=== PATIENT | female | born 1970 | race Caucasian/White ===

== ENCOUNTER 2017-02-23 15:39 | Inpatient (IN) ==
[2017-02-23] MEDS ORDERED: 0.9 % Sodium Chloride 1,000 ML IVC ONE (15:49)
[2017-02-23 16:13] LABS: Basophils # 0.1 K/mcL (0.0-0.2); Basophils % 0.4 %; Eosinophils % 0.1 %; Hemoglobin 17.4 g/dL (11.5-15.4); Immature Granulocytes % 0.3 % (0-4); Lymphocytes # 1.9 K/mcL (0.6-4.6); Lymphocytes % 9.7 %; Mean Corpuscular HGB Conc 35.5 g/dL (31.6-35.5); Mean Corpuscular Hemoglobin 31.8 pg (28.0-33.3); Mean Corpuscular Volume 89.6 fL (83.0-100.0); Mean Platelet Volume 9.2 fL (9.4-12.4); Monocytes % 5.1 %; Neutrophils # 16.9 K/mcL (1.6-8.9); Platelet Count 259 K/mcL (140-400); Red Blood Count 5.47 M/mcL (3.82-4.97); Red Cell Distribution Width 12.6 % (11.5-14.5); Segmented Neutrophils % 84.4 %
--- NOTE | 2017-02-23 16:23 | Emergency Department Note ---
Disposition Clinical Impression: Community acquired pneumonia Leukocytosis Qualifiers: Leukocytosis type: unspecified Qualified Code(s): D72.829 - Elevated white blood cell count, unspecified Disposition: Admitted As Inpatient Condition: Fair Time of Disposition: 17:11 SOB HPI - General Chief Complaint: ED Shortness of Breath/Dyspnea Stated Complaint: MARGARET dizzy Time Seen by Provider: 02/23/17 15:46 Source: patient Mode of arrival: ambulatory Limitations: no limitations Nursing Notes Reviewed: Yes Vital Signs Reviewed: Yes - History of Present Illness Patient presents to the ED with the chief complaint of shortness of breath. Patient reports that over the last couple weeks she has been having dyspnea. She reports that it feels very much like a burning whenever she breathes in, "like a drink bleach." She denies any ingestions. She does not know. She said any fevers, but has been sweaty at times. This will nauseated at times. Denies any chest discomfort but states it feels like her lungs hurt. Family reports that she is a poorly controlled diabetic and generally does not take care of herself. She does continue to smoke. Patient states that she has been trying to meditate to help with her symptoms, but it has not been helping. No previous history of coronary artery disease. No history DVT or PE. - Related Data Home Medications Medication Instructions Recorded Confirmed No Known Home Drugs 02/23/17 02/23/17 Allergies Allergy/AdvReac Type Severity Reaction Status Date / Time No Known Allergies Allergy Verified 02/23/17 15:45 Constitutional: Denies: fever Eyes: Denies: vision change Cardiovascular: Reports: palpitations, dyspnea on exertion. Denies: chest pain Respiratory: Reports: cough, dyspnea. Denies: wheezes Gastrointestinal: Reports: nausea. Denies: abdominal pain Integumentary: Denies: rash Neurological: Denies: headache Psychiatric: Reports: anxiety Endocrine: Reports: fatigue Past Medical History - Past Medical History Attestation: Yes The following information was validated with the patient. Source: patient Medical history: Reports: diabetes Psychiatric history: Reports: no psych history - Social History Smoking Status: Current some day smoker Alcohol use: Reports: none Drug use: Reports: none Physical Exam - General Limitations: no limitations General appearance: alert, anxious - Head Head exam: atraumatic, normocephalic, normal inspection - Eye Eye exam: Present: normal appearance, PERRL, EOMI - ENT ENT exam: normal exam, normal oropharynx, mucous membranes moist - Neck Neck exam: Present: normal inspection, full ROM, trachea midline - Chest Chest inspection: Present: normal inspection, symmetric chest wall rise - Respiratory Respiratory exam: Present: respiratory distress (mild tachypnic ), other ( Course breath sounds throughout). Absent: normal lung sounds bilaterally - Cardiovascular Cardiovascular exam: Present: tachycardia, normal heart sounds - Abdominal Exam Abdominal exam: Present: soft, Non-Tender. Absent: tenderness, distention, guarding, rebound, rigidity - Extremities Exam Extremities exam: Present: normal inspection, full ROM. Absent: tenderness, pedal edema - Neurological Exam Neurological exam: Present: alert, oriented X3 - Psychiatric Psychiatric exam: Present: anxious - Skin Skin exam: Present: warm, dry, intact, normal color Course Course Narrative: 46 to female presenting with shortness of breath for a few weeks. Clinically, she has pneumonia. We will get chest x-ray. Labs start antibiotics and admitted. Vital Signs Temperature 99.2 F 02/23/17 15:44 Pulse Rate 112 02/23/17 15:44 Respiratory Rate 24 02/23/17 15:44 Blood Pressure 174/107 02/23/17 15:44 O2 Sat by Pulse Oximetry 94 02/23/17 15:44 Temperature 98.0 F 02/23/17 22:39 Pulse Rate 99 02/23/17 22:39 Respiratory Rate 19 02/23/17 22:58 Blood Pressure 144/82 02/23/17 22:39 O2 Sat by Pulse Oximetry 93 02/23/17 22:58 Oxygen Delivery Oxygen Delivery Aerosol Mask Shortness of Breath/Dyspnea - Medical Records Medical records reviewed: Yes I reviewed the patient's medical records. - Lab Data Lab results reviewed: Yes I reviewed the patient's lab results. Result diagrams: 02/23/17 16:02 02/23/17 16:02 Lab Results 02/23/17 02/23/17 02/23/17 Range/Units 16:02 16:02 16:02 WBC 20.0 H (4.3-11.1) K/mcL RBC 5.47 H (3.82-4.97) M/mcL Hgb 17.4 H (11.5-15.4) g/dL Hct 49.0 H (35.3-44.9) % MCV 89.6 (83.0-100.0) fL MCH 31.8 (28.0-33.3) pg MCHC 35.5 (31.6-35.5) g/dL RDW 12.6 (11.5-14.5) % Plt Count 259 (140-400) K/mcL MPV 9.2 L (9.4-12.4) fL Immature Gran % 0.3 (0-4) % Seg Neutrophils % 84.4 % Lymphocytes % 9.7 % Monocytes % 5.1 % Eosinophils % 0.1 % Basophils % 0.4 % Neutrophils # 16.9 H (1.6-8.9) K/mcL Lymphocytes # 1.9 (0.6-4.6) K/mcL Monocytes # 1.0 (0.0-1.3) K/mcL Eosinophils # 0.0 (0.0-0.6) K/mcL Basophils # 0.1 (0.0-0.2) K/mcL D-Dimer 313 (0-500) ng/mLFEU Sodium 136 (136-145) mEq/L Potassium 4.2 (3.5-4.5) mEq/L Chloride 103 (98-109) mEq/L Carbon Dioxide 22 (19-29) mEq/L BUN 11 (7-20) mg/dL Creatinine 0.79 (0.57-1.11) mg/dL Est GFR ( Amer) > 60 (> 60) Est GFR (Non-Af Amer) > 60 (> 60) BUN/Creatinine Ratio 14 (6-26) Glucose 189 H (70-99) mg/dL Calculated Osmolality 286 (280-300) Lactic Acid (0.5-2.2) mmol/L Calcium 10.1 (8.6-10.8) mg/dL Total Bilirubin 0.8 (0.2-1.2) mg/dL Direct Bilirubin 0.2 (0.0-0.5) mg/dL Indirect Bilirubin 0.6 (0.0-1.2) mg/dL AST 17 (5-34) Units/L ALT 18 (0-55) Units/L Alkaline Phosphatase 98 (38-126) Units/L Creatine Kinase 68 (29-168) Units/L Troponin I (0-0.03) ng/mL B-Natriuretic Peptide (0-100) pg/mL Serum Total Protein 8.2 (6.0-8.3) g/dL Albumin 4.1 (3.5-5.0) g/dL Globulin 4.1 H (2.4-3.5) g/dL Albumin/Globulin Ratio 1.0 L (1.1-2.2) 02/23/17 02/23/17 02/23/17 Range/Units 16:02 16:02 16:18 WBC (4.3-11.1) K/mcL RBC (3.82-4.97) M/mcL Hgb (11.5-15.4) g/dL Hct (35.3-44.9) % MCV (83.0-100.0) fL MCH (28.0-33.3) pg MCHC (31.6-35.5) g/dL RDW (11.5-14.5) % Plt Count (140-400) K/mcL MPV (9.4-12.4) fL Immature Gran % (0-4) % Seg Neutrophils % % Lymphocytes % % Monocytes % % Eosinophils % % Basophils % % Neutrophils # (1.6-8.9) K/mcL Lymphocytes # (0.6-4.6) K/mcL Monocytes # (0.0-1.3) K/mcL Eosinophils # (0.0-0.6) K/mcL Basophils # (0.0-0.2) K/mcL D-Dimer (0-500) ng/mLFEU Sodium (136-145) mEq/L Potassium (3.5-4.5) mEq/L Chloride (98-109) mEq/L Carbon Dioxide (19-29) mEq/L BUN (7-20) mg/dL Creatinine (0.57-1.11) mg/dL Est GFR ( Amer) (> 60) Est GFR (Non-Af Amer) (> 60) BUN/Creatinine Ratio (6-26) Glucose (70-99) mg/dL Calculated Osmolality (280-300) Lactic Acid 1.3 (0.5-2.2) mmol/L Calcium (8.6-10.8) mg/dL Total Bilirubin (0.2-1.2) mg/dL Direct Bilirubin (0.0-0.5) mg/dL Indirect Bilirubin (0.0-1.2) mg/dL AST (5-34) Units/L ALT (0-55) Units/L Alkaline Phosphatase (38-126) Units/L Creatine Kinase (29-168) Units/L Troponin I 0.00 (0-0.03) ng/mL B-Natriuretic Peptide 15 (0-100) pg/mL Serum Total Protein (6.0-8.3) g/dL Albumin (3.5-5.0) g/dL Globulin (2.4-3.5) g/dL Albumin/Globulin Ratio (1.1-2.2) - Radiology Data Radiology results reviewed: Yes I reviewed the patient's radiology results. - EKG Data EKG attestation: Yes I reviewed and interpreted this EKG. EKG results narrative: Sinus tach, rate 106, ME interval 174, QRS 11, QTc 383, normal axis, minimal ST segment depression, but no acute ischemic changes Critical Care Time Total Critical Care Time: 35 Attestation: Greater than 35 minutes of critical care time was spent actively resuscitating this patient suffering from sepsis. She did have hypoxia. Critical care time was excluding billable procedures S.B.AMahamed - Linda Situation: Demographics, MOA Background: Presenting Complaint, Relevant PMH, Meds, & Allergies Assessment: Vital Signs, Course and respsone to treatment, Exam Concerns, Patient/Family Expectation, Pertinant Lab Results, Outstanding Labs Recommendation: Barrier(s) to disposition, Recommendation based on pending studies, treatments, or consults S.B.Trent Report Given to: Dr. Layla Mckeon Repor Time: 17:11 Attestation Statement - Attestation Attestation: I examined this patient and my medical decision-making was reviewed with the Resident Physician. I agree with the documented findings, disposition and treatment plan as described except to the extent set forth below. In summary 46 -year-old female with symptoms of acute bronchitis with concurrent symptoms of systemic inflammatory response syndrome. Antibiotics initiated on arrival. Fluid bolus initiated. Patient received bronchodilators. D-dimer was checked and was negative. Plan to admit for evaluation of possible sepsis in the setting of underlying bronchitis. Hypoxia resolved at the time of admission.
[2017-02-23 16:29] LABS: Alanine Aminotransferase 18 Units/L (0-55); Albumin 4.1 g/dL (3.5-5.0); Alkaline Phosphatase 98 Units/L (38-126); Aspartate Amino Transferase 17 Units/L (5-34); BUN/Creatinine Ratio 14 (6-26); Bilirubin,Direct 0.2 mg/dL (0.0-0.5); Bilirubin,Indirect 0.6 mg/dL (0.0-1.2); Bilirubin,Total 0.8 mg/dL (0.2-1.2); Blood Urea Nitrogen 11 mg/dL (7-20); Calcium 10.1 mg/dL (8.6-10.8); Carbon Dioxide 22 mEq/L (19-29); Chloride 103 mEq/L (98-109); Creatine Kinase 68 Units/L (29-168); Globulin 4.1 g/dL (2.4-3.5); Glucose 189 mg/dL (70-99); Osmolality,Calculated 286 (280-300); Potassium 4.2 mEq/L (3.5-4.5); Sodium 136 mEq/L (136-145); Total Protein 8.2 g/dL (6.0-8.3); eGFR For African Americans > 60 (> 60); eGFR For Non-African Americans > 60 (> 60)
[2017-02-23] MEDS ORDERED: Ipratropium/Albuterol Neb 3 ML IH ONE (17:09)
--- NOTE | 2017-02-23 17:28 | Event Note ---
Date of Encounter: 02/23/17 Time of Encounter: 17:25 1. Acute COPD exacerbation likely secondary to sepsis due to acute bronchitis bacterial versus viral Heart rate 114 White blood cell count 20 *Solu-Medrol 40 mg IV every 8 hours, start Rocephin, continue DuoNeb's and oxygen therapy 2. Diabetes type 2 not insulin-dependent. Use insulin sliding scale while being in the hospital 3. Tobacco use, smoking cessation counseling, nicotine patch 4. Leukocytosis secondary to sepsis Omeprazole for GI prophylaxis and subcutaneous heparin for deep prophylaxis. The patient will be admitted for observation. Full code. Time spent on this admission 40 minutes. H&P to be dictated by Nerissa Jaeger
[2017-02-23] MEDS ORDERED: Ondansetron ODT 4 MG TAB.RAPDIS SL PRN (17:50)
[2017-02-23] MEDS ORDERED: Naloxone 0.4 MG/ML INJ IVP PRN (17:50)
[2017-02-23] MEDS ORDERED: Acetaminophen 325 MG TABLET PO PRN (17:50)
[2017-02-23] MEDS ORDERED: methylPREDNISolone 125 MG/2 ML VIAL IVP ONE (17:55)
[2017-02-23] MEDS ORDERED: Albuterol 2.5 MG/3 ML NEBULIZER IH PRN (17:55)
[2017-02-23] MEDS ORDERED: Dextrose Gel 15 GM PO PRN ×2 (17:57)
[2017-02-23] MEDS ORDERED: *HR* Dextrose 50 % in Water (Syg) 50 ML SYRINGE IVP PRN (17:57)
[2017-02-23] MEDS ORDERED: Nicotine 2 MG GUM BC PRN (17:57)
[2017-02-23] MEDS ORDERED: D5% in Water 1,000 ML IVC PRN (17:57)
--- NOTE | 2017-02-23 18:02 | Internal Med History&Physical ---
<Nerissa Jaeger M - Last Filed: 02/23/17 17:58> Date of Encounter: 02/23/17 Time of Encounter: 17:58 Assessment and Plan (1) Sepsis Current visit: Yes Status: Acute Patient with bronchitis, tachycardia with HR 110s, tachypnea with RR 24 and elevated WBC of 20. Blood cultures ordered and sent Lactate normal at 1.3 Fluids of 3L total ordered by ED. Antibiotics started with Rocephin for acute bronchitis. Qualifiers: Sepsis type: sepsis due to unspecified organism Qualified Code(s): A41.9 - Sepsis, unspecified organism (2) Acute bronchitis Current visit: Yes Status: Acute Patient reports productive cough, shortness of breath, chills and sweats. CXR shows no acute process. Wheezes and rhonchi heard on exam. Rocephin IVPB Solu medrol 125mg IVP followed by 60mg IVP TID. duoneb treatments QIDR albuterol Q2 PRN mucinex BID budesonide/formotorol BID titrate oxygen to maintain saturation > 92%. Qualifiers: Bronchitis organism: unspecified organism Qualified Code(s): J20.9 - Acute bronchitis, unspecified (3) Hypoxia Current visit: Yes Status: Acute Patient presenting with shortness of breath, tachypnea. She is satting 80s-low 90s on room air. Secondary to acute bronchitis. titrate O2 to maintain saturation > 92%. duoneb treatments and albuterol nebulizers, steroids and antibiotics to treat bronchitis. (4) Smoker Current visit: Yes Status: Acute Discussed and encouraged smoking cessation. Patient considering quitting, offered encouragement. Nicotine gum and smoking cessation education. (5) DVT prophylaxis Current visit: Yes Status: Acute anti-embolic stockings. lovenox sQ daily. Internal Medicine - H&P: HPI Chief complaint: shortness of breath Admitted From: Emergency Dept Plans for Post Hospital Care: Home History of present illness: Ms. Hernandez is a 46 year old female with type 2 diabetes, smoker who presented to the emergency department today with complaints of shortness of breath and lightheadedness. Patient reports that approximately a week ago she had an upper respiratory infection, which subsequently spread to her chest over the weekend. She has been coughing up thick yellow sputum, and taking Mucinex as well as [place] cold and cough. She reports her symptoms progressed to the point where she felt lightheaded, and like she could not catch her breath today at work so she decided to come to the emergency department. She reports burning in her chest when she coughs. She denies any palpitations, nausea, vomiting, abdominal pain. She reports chills and sweats. She also reports decreased appetite. Evaluation in emergency department revealed elevated white blood cell count of 20, patient was tachycardic with heart rate in the low 100s , respiratory rate was elevated at 24. Lactate was normal at 1.3. Chest x-ray showed no acute process. On exam, patient alert and oriented, in no acute distress. Heart had regular, tachycardic rhythm. Lungs had diffuse wheezing and rhonchi bilaterally. Patient was tachypneic. She was satting in the 80s to 90s percent on room air. Past Med Surg Social Fam HX - Past Medical History Medical history: diabetes Psychiatric history: no psych history - Past Surgical History Surgical History: no surgical history - Social History Smoking Status: Current every day smoker (35 pack year history) Packs per day: 1.5 Alcohol use: rarely Drug use: marijuana - Family History Mother Living Status: Still Living Father Living Status: Hx Family Cancer: Yes Internal Medicine - H&P: Meds No Known Home Drugs 02/23/17 [History] Allergies No Known Allergies Allergy (Verified 02/23/17 15:45) All Systems PM: A 10-system review of systems was performed and is negative for pertinent findings except as documented above in the HPI. - Constitutional Constitutional: anorexia, chills, fever(s), no night sweats - EENT Eyes: no change in vision, no discharge, no pain, no photophobia Ears: no ear discharge, no ear pain, no tinnitus Nose, mouth and throat: no dysphagia, no nasal discharge, no neck pain, no sore throat - Cardiovascular Cardiovascular ROS IM: lightheadedness, no chest pain, no diaphoresis, no dyspnea, no palpitations, no syncope - Respiratory Respiratory: cough, dyspnea, dyspnea on exertion, wheezing, chest congestion, excessive phlegm production, pain with cough - Gastrointestinal Gastrointestinal: no abdominal pain, no diarrhea, no hematemesis, no hematochezia, no melena, no nausea, no vomiting - Genitourinary Genitourinary: no change in urinary stream, no dysuria, no flank pain, no hematuria - Musculoskeletal Musculoskeletal ROS IM: no numbness, no tingling - Integumentary Integumentary IM: no rash, no unusual bruising - Neurological Neurological ROS: no confusion, no convulsions, no focal weakness, no numbness, no tingling, no tremor(s) - Hematologic/Lymphatic Hematologic/Lymphatic: no easy bruising - Constitutional Vitals: Temp Pulse Resp BP Pulse Ox 99.2 F 111 24 174/107 94 02/23/17 15:44 02/23/17 15:56 02/23/17 15:56 02/23/17 15:56 02/23/17 15:56 General appearance: Present: A&O X 3, pleasant, no acute distress - Head Head exam: Present: atraumatic, normocephalic - Eye Eye exam: Present: PERRL, conjuntiva pink, sclera anicteric Pupils: Present: PERRL - Neck Neck exam general surgery: Present: supple, trachea midline. Absent: lymphadenopathy - Respiratory Respiratory exam: Present: rhonchi, wheezes, tachypnea. Absent: accessory muscle use, rales - Cardiovascular Cardiovascular exam: Present: RRR, +S1, +S2, tachycardia. Absent: diastolic murmur, gallop, rubs, systolic murmur - GI/Abdominal GI/Abdominal exam: Present: normal bowel sounds, soft, no peritoneal signs. Absent: distended, tenderness - Extremities Exam Extremities exam: Present: warm, radial pulses palpable and symetrical. Absent : calf tenderness, cyanotic, pedal edema - Neurological Exam Neurological exam: Present: CN II-XII intact, oriented X3, no focal deficits. Absent: facial droop, speech deficit - Skin Skin exam: Present: dry, intact Internal Med - H&P Results - Labs CBC & Chem 7: 02/23/17 16:02 02/23/17 16:02 Labs: All Lab Results (24 Hours) 02/23/17 02/23/17 02/23/17 Range/Units 16:02 16:02 16:02 WBC 20.0 H (4.3-11.1) K/mcL RBC 5.47 H (3.82-4.97) M/mcL Hgb 17.4 H (11.5-15.4) g/dL Hct 49.0 H (35.3-44.9) % MCV 89.6 (83.0-100.0) fL MCH 31.8 (28.0-33.3) pg MCHC 35.5 (31.6-35.5) g/dL RDW 12.6 (11.5-14.5) % Plt Count 259 (140-400) K/mcL MPV 9.2 L (9.4-12.4) fL Immature Gran % 0.3 (0-4) % Seg Neutrophils % 84.4 % Lymphocytes % 9.7 % Monocytes % 5.1 % Eosinophils % 0.1 % Basophils % 0.4 % Neutrophils # 16.9 H (1.6-8.9) K/mcL Lymphocytes # 1.9 (0.6-4.6) K/mcL Monocytes # 1.0 (0.0-1.3) K/mcL Eosinophils # 0.0 (0.0-0.6) K/mcL Basophils # 0.1 (0.0-0.2) K/mcL D-Dimer 313 (0-500) ng/mLFEU Sodium 136 (136-145) mEq/L Potassium 4.2 (3.5-4.5) mEq/L Chloride 103 (98-109) mEq/L Carbon Dioxide 22 (19-29) mEq/L BUN 11 (7-20) mg/dL Creatinine 0.79 (0.57-1.11) mg/dL Est GFR ( Amer) > 60 (> 60) Est GFR (Non-Af Amer) > 60 (> 60) BUN/Creatinine Ratio 14 (6-26) Glucose 189 H (70-99) mg/dL Calculated Osmolality 286 (280-300) Lactic Acid (0.5-2.2) mmol/L Calcium 10.1 (8.6-10.8) mg/dL Total Bilirubin 0.8 (0.2-1.2) mg/dL Direct Bilirubin 0.2 (0.0-0.5) mg/dL Indirect Bilirubin 0.6 (0.0-1.2) mg/dL AST 17 (5-34) Units/L ALT 18 (0-55) Units/L Alkaline Phosphatase 98 (38-126) Units/L Creatine Kinase 68 (29-168) Units/L Troponin I (0-0.03) ng/mL B-Natriuretic Peptide (0-100) pg/mL Serum Total Protein 8.2 (6.0-8.3) g/dL Albumin 4.1 (3.5-5.0) g/dL Globulin 4.1 H (2.4-3.5) g/dL Albumin/Globulin Ratio 1.0 L (1.1-2.2) 02/23/17 02/23/17 02/23/17 Range/Units 16:02 16:02 16:18 WBC (4.3-11.1) K/mcL RBC (3.82-4.97) M/mcL Hgb (11.5-15.4) g/dL Hct (35.3-44.9) % MCV (83.0-100.0) fL MCH (28.0-33.3) pg MCHC (31.6-35.5) g/dL RDW (11.5-14.5) % Plt Count (140-400) K/mcL MPV (9.4-12.4) fL Immature Gran % (0-4) % Seg Neutrophils % % Lymphocytes % % Monocytes % % Eosinophils % % Basophils % % Neutrophils # (1.6-8.9) K/mcL Lymphocytes # (0.6-4.6) K/mcL Monocytes # (0.0-1.3) K/mcL Eosinophils # (0.0-0.6) K/mcL Basophils # (0.0-0.2) K/mcL D-Dimer (0-500) ng/mLFEU Sodium (136-145) mEq/L Potassium (3.5-4.5) mEq/L Chloride (98-109) mEq/L Carbon Dioxide (19-29) mEq/L BUN (7-20) mg/dL Creatinine (0.57-1.11) mg/dL Est GFR ( Amer) (> 60) Est GFR (Non-Af Amer) (> 60) BUN/Creatinine Ratio (6-26) Glucose (70-99) mg/dL Calculated Osmolality (280-300) Lactic Acid 1.3 (0.5-2.2) mmol/L Calcium (8.6-10.8) mg/dL Total Bilirubin (0.2-1.2) mg/dL Direct Bilirubin (0.0-0.5) mg/dL Indirect Bilirubin (0.0-1.2) mg/dL AST (5-34) Units/L ALT (0-55) Units/L Alkaline Phosphatase (38-126) Units/L Creatine Kinase (29-168) Units/L Troponin I 0.00 (0-0.03) ng/mL B-Natriuretic Peptide 15 (0-100) pg/mL Serum Total Protein (6.0-8.3) g/dL Albumin (3.5-5.0) g/dL Globulin (2.4-3.5) g/dL Albumin/Globulin Ratio (1.1-2.2) - Diagnostic Studies Chest x-ray Additional comments: Chest X-Ray 02/23/17 15:51 IMPRESSION: No acute process. D/ / Matthew Graves MD / Matthew Graves MD Interpreting Provider: Matthew Graves MD <Kash Cash H - Last Filed: 02/23/17 18:27> Date of Encounter: 02/23/17 Internal Medicine - H&P: HPI History of present illness: Ms. Hernandez is a 46 year old female All Systems PM: A 10-system review of systems was performed and is negative for pertinent findings except as documented above in the HPI. - Constitutional Vitals: Temp Pulse Resp BP Pulse Ox 99.2 F 98 18 155/93 98 02/23/17 15:44 02/23/17 18:26 02/23/17 18:26 02/23/17 18:26 02/23/17 18:26 Internal Med - H&P Results - Labs CBC & Chem 7: 02/23/17 16:02 02/23/17 16:02 - Attending Attestation 1. Acute COPD exacerbation likely secondary to sepsis due to acute bronchitis bacterial versus viral Heart rate 114 White blood cell count 20 *Solu-Medrol 40 mg IV every 8 hours, start Rocephin, continue DuoNeb's and oxygen therapy 2. Diabetes type 2 not insulin-dependent. Use insulin sliding scale while being in the hospital 3. Tobacco use, smoking cessation counseling, nicotine patch 4. Leukocytosis secondary to sepsis Omeprazole for GI prophylaxis and subcutaneous heparin for deep prophylaxis. The patient will be admitted for observation. Full code. Time spent on this admission 40 minutes.
[2017-02-23] MEDS: 0.9 % Sodium Chloride 1,000 ML IVC SCH ×3 (18:17→18:54)
[2017-02-23 19:46] LABS: Hemoglobin A1C 8.1 %
[2017-02-23] MEDS: Insulin LISPRO 300 UNITS/3 ML VIAL SQ SCH (21:16)
[2017-02-23 21:54] LABS: Bilirubin,Urine Negative (Negative); Blood,Urine Negative (Negative); Clarity,Urine Cloudy (Clear); Color,Urine Yellow (Yellow); Glucose,Urine (UA) 100 mg/dL (Normal); Ketones,Urine Negative (Negative); Leukocyte Esterase,Urine Negative (Negative); Nitrite,Urine Negative (Negative); Protein,Urine Negative (Neg-Trace); Specific Gravity,Urine 1.017 (1.010-1.025); Urobilinogen,Urine Normal (Normal)
[2017-02-23 21:57] LABS: Bacteria,Urine None Seen per hpf (None-Few); Hyaline Casts,Urine None Seen per lpf (None-Few); RBC,Urine 0-3 per hpf (0-3); Squamous Epithelial Cell,Urine Many per lpf (None-Few); WBC,Urine 0-3 per hpf (0-3)
[2017-02-23] MEDS: Budesonide/Formoterol 160/4.5 MDI IH SCH (22:57)
[2017-02-23] MEDS: Ipratropium/Albuterol Neb 3 ML IH SCH (22:58)
[2017-02-23] MEDS: methylPREDNISolone 125 MG/2 ML VIAL IVP SCH (23:48)
[2017-02-24] MEDS: Ipratropium/Albuterol Neb 3 ML IH SCH ×4 (04:05→22:38)
[2017-02-24 04:24] LABS: Basophils % 0.2 %; Hematocrit 46.7 % (35.3-44.9); Immature Granulocytes % 0.5 % (0-4); Lymphocytes # 0.7 K/mcL (0.6-4.6); Lymphocytes % 5.7 %; Mean Corpuscular HGB Conc 34.3 g/dL (31.6-35.5); Mean Corpuscular Hemoglobin 31.4 pg (28.0-33.3); Mean Corpuscular Volume 91.7 fL (83.0-100.0); Mean Platelet Volume 9.5 fL (9.4-12.4); Monocytes # 0.1 K/mcL (0.0-1.3); Neutrophils # 11.6 K/mcL (1.6-8.9); Platelet Count 240 K/mcL (140-400); Red Blood Count 5.09 M/mcL (3.82-4.97); Red Cell Distribution Width 12.7 % (11.5-14.5); Segmented Neutrophils % 92.6 %
[2017-02-24 04:37] LABS: BUN/Creatinine Ratio 13 (6-26); Blood Urea Nitrogen 10 mg/dL (7-20); Calcium 9.5 mg/dL (8.6-10.8); Carbon Dioxide 22 mEq/L (19-29); Chloride 104 mEq/L (98-109); Glucose 257 mg/dL (70-99); Osmolality,Calculated 288 (280-300); Potassium 4.3 mEq/L (3.5-4.5); Sodium 135 mEq/L (136-145); eGFR For African Americans > 60 (> 60); eGFR For Non-African Americans > 60 (> 60)
[2017-02-24] MEDS: *HR* Enoxaparin 40 MG/0.4 ML SYRINGE SQ SCH (05:52)
[2017-02-24] MEDS: methylPREDNISolone 125 MG/2 ML VIAL IVP SCH ×2 (08:36→16:54)
[2017-02-24] MEDS: Insulin LISPRO 300 UNITS/3 ML VIAL SQ SCH ×4 (08:36→21:05)
[2017-02-24] MEDS: Budesonide/Formoterol 160/4.5 MDI IH SCH ×2 (10:27→22:37)
--- NOTE | 2017-02-24 10:50 | Internal Med Progress Note ---
Date of Encounter: 02/24/17 Time of Encounter: 10:30 - Assessment and plan (1) Acute bronchitis Current Visit: Yes Status: Acute Assessment and plan: Pt reports productive cough, SOB, and feeling fatigued. Wheezing and ronchi heard in all post leonardo. Pt is currently on room air and sats are 92%. Continue IV rocephin Solumedrol 60mg IV TID Duoneb 4x daily scheduled and albuterol treatments q2h prn Mucinex BID Inhalers BID O2 titrate to maintain sats >92% Qualifiers: Bronchitis organism: unspecified organism Qualified Code(s): J20.9 - Acute bronchitis, unspecified (2) Sepsis Current Visit: Yes Status: Acute Assessment and plan: Pulse remains >90. Pt has bronchitis and presented with leukocytosis. WBC 12.6 today, improving. Lactate 1.3. Continue fluids and antibiotic. Urine and blood cultures pending. Qualifiers: Sepsis type: sepsis due to unspecified organism Qualified Code(s): A41.9 - Sepsis, unspecified organism (3) Hypoxia Current Visit: Yes Status: Acute Assessment and plan: Pt had need for supplemental 02 on arrival secondary to acute bronchitis. Titrate 02 to maintain sats > 92%. Pt is on room air at this time and sats are greater than 92%. Plan as above. (4) Smoker Current Visit: Yes Status: Acute Assessment and plan: Pt is a smoker, declines patches or gum at this time and states that she will quit on her own. (5) Diabetes mellitus type 2 in obese Current Visit: Yes Status: Acute Assessment and plan: Chronic. Pt states that she has not taken her Metformin for 2 years. A1c 8.1. Pt will start Metformin again on discharge. She states that she does not need to see religious educator again. She will need rx for glucometer, lancets, and strips, as well as Metformin. Continue diabetic diet Accuchecks ac/hs SSI (6) Obesity (BMI 30.0-34.9) Current Visit: Yes Status: Acute Assessment and plan: Chronic. Lifestyle changes. (7) DVT prophylaxis Current Visit: Yes Status: Acute Assessment and plan: Pt is ambulatory. Lovenox SQ - Time Spent With Patient less than 15 minutes - Subjective Interval history: Pt was seen and assessed at 1030 a.m. Pt was sitting up in bed, breathing tx in progress. She reports prod cough with white sputum and still feeling SOB. She states that she is ready to stop smoking, but states that she wants to do it on her own and has declined patches or gum. - Constitutional Vitals: Temp Pulse Resp BP Pulse Ox 98.0 F 96 17 150/76 92 02/24/17 07:04 02/24/17 07:04 02/24/17 07:04 02/24/17 07:04 02/24/17 08:40 General appearance: Present: A&O X 3, pleasant, no acute distress, obese, answers questions appropriately - Head Head exam: Present: normal inspection - Eye Eye exam: Present: normal appearance, conjuntiva pink - ENT ENT exam: Present: mucous membranes moist, normal exam, normal external ear exam - Neck Neck exam general surgery: Present: normal inspection. Absent: lymphadenopathy , tenderness - Respiratory Respiratory exam: Present: decreased breath sounds, rhonchi, wheezes. Absent: chest wall tenderness, CTAB, respiratory distress - Cardiovascular Cardiovascular exam: Present: RRR, +S1, +S2, tachycardia. Absent: clicks, diastolic murmur, gallop - Expanded Cardiovascular Exam Peripheral pulses: 2+: Dorsalis Pedis (L) PM, Dorsalis Pedis (R) PM - GI/Abdominal GI/Abdominal exam: Present: distended, normal bowel sounds, soft. Absent: hepatomegaly, tenderness - Extremities Exam Extremities exam: Present: normal inspection, warm, radial pulses palpable and symetrical. Absent: pedal edema, tenderness - Neurological Exam Neurological exam: Present: alert, oriented X3, no focal deficits, strengths equal and symetr throughout. Absent: facial droop, speech deficit - Skin Skin exam: Present: dry, intact, warm. Absent: rash Internal Medicine: Result - Labs CBC & Chem 7: 02/24/17 03:25 02/24/17 03:25 Labs: Short CBC 02/24/17 Range/Units 03:25 WBC 12.6 H (4.3-11.1) K/mcL Hgb 16.0 H (11.5-15.4) g/dL Hct 46.7 H (35.3-44.9) % Plt Count 240 (140-400) K/mcL Neutrophils # 11.6 H (1.6-8.9) K/mcL BMP 02/24/17 03:25 Sodium 135 L Potassium 4.3 Chloride 104 Carbon Dioxide 22 BUN 10 Creatinine 0.80 Glucose 257 H Calcium 9.5 Urine 02/23/17 Range/Units 21:32 Urine Color Yellow (Yellow) Urine Clarity Cloudy A (Clear) Urine pH 6.0 (5.0-8.0) pH Units Ur Specific [place] 1.017 (1.010-1.025) Urine Protein Negative (Neg-Trace) mg/dL Urine Glucose (UA) 100 H (Normal) mg/dL - ABG Interpretation ABG results: PT/INR, D-dimer D-Dimer 313 ng/mLFEU (0-500) 02/23/17 16:02 Consult Discharge Plan - Plan Referrals: NONE,PCP [Primary Care Provider] -
--- NOTE | 2017-02-24 20:40 | Electrocardiograph Report ---
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
[2017-02-25] MEDS: methylPREDNISolone 125 MG/2 ML VIAL IVP SCH ×2 (00:38→07:36)
[2017-02-25] MEDS: Ipratropium/Albuterol Neb 3 ML IH SCH ×3 (04:11→11:45)
[2017-02-25 05:38] LABS: Basophils % 0.1 %; Immature Granulocytes % 0.8 % (0-4)
[2017-02-25 05:39] LABS: Hematocrit 45.4 % (35.3-44.9); Hemoglobin 15.8 g/dL (11.5-15.4); Lymphocytes % 3.8 %; Mean Corpuscular HGB Conc 34.8 g/dL (31.6-35.5); Mean Corpuscular Volume 91.9 fL (83.0-100.0); Mean Platelet Volume 9.6 fL (9.4-12.4); Monocytes # 0.3 K/mcL (0.0-1.3); Monocytes % 1.1 %; Platelet Count 246 K/mcL (140-400); Red Blood Count 4.94 M/mcL (3.82-4.97); Segmented Neutrophils % 94.2 %
[2017-02-25 05:57] LABS: Neutrophils # 24.9 K/mcL (1.6-8.9)
[2017-02-25 05:59] LABS: BUN/Creatinine Ratio 19 (6-26); Blood Urea Nitrogen 16 mg/dL (7-20); Calcium 9.5 mg/dL (8.6-10.8); Carbon Dioxide 23 mEq/L (19-29); Chloride 105 mEq/L (98-109); Glucose 353 mg/dL (70-99); Osmolality,Calculated 297 (280-300); Potassium 4.2 mEq/L (3.5-4.5); Sodium 136 mEq/L (136-145); eGFR For African Americans > 60 (> 60); eGFR For Non-African Americans > 60 (> 60)
[2017-02-25] MEDS: *HR* Enoxaparin 40 MG/0.4 ML SYRINGE SQ SCH (06:10)
[2017-02-25 06:16] LABS: Platelet Estimate Normal (Normal); Toxic Granulation Present (Not Present)
[2017-02-25] MEDS: Insulin LISPRO 300 UNITS/3 ML VIAL SQ SCH ×2 (07:36→12:25)
--- NOTE | 2017-02-25 10:51 | Discharge Summary ---
Date of Encounter: 02/25/17 Time of Encounter: 08:40 - Discharge Diagnosis (1) Acute bronchitis Priority: Primary Status: Acute Comments: Pt is not using supplemental 02, she is able to speak in lengthy sentences, and is able to ambulate freely on the unit without difficulty. Pt still has expiratory wheezing in post lung leonardo. There is adequate air movement noted with auscultation. She states that her cough has improved. Pt will be going home with rx for Duonebs and a nebulizer, prednisone taper, and zithromax. Qualifiers: Bronchitis organism: unspecified organism Qualified Code(s): J20.9 - Acute bronchitis, unspecified (2) Sepsis Priority: Secondary Status: Resolved Comments: REsolved. Pt is afebrile, vitals are stable, and there is no leukocytosis. Qualifiers: Sepsis type: sepsis due to unspecified organism Qualified Code(s): A41.9 - Sepsis, unspecified organism (3) Hypoxia Priority: Secondary Status: Resolved Comments: Pt is not requiring supplemental 02. Sats are high 90s on room air. (4) Smoker Priority: Secondary Status: Chronic Comments: Pt states that she is going to stop smoking on her own. She has declined patches , gum, or any other pharmacological methods. (5) Diabetes mellitus type 2 in obese Priority: Secondary Status: Chronic Comments: Chronic. A1c is 8.1. Pt states that she will be willing to retart Metformin. She will need to follow up with her PCP for ongoing care and medication adjustments. (6) Obesity (BMI 30.0-34.9) Priority: Secondary Status: Chronic Comments: Chronic. Lifestyle changes. (7) DVT prophylaxis Priority: Secondary Status: Acute Comments: Pt has been ambulatory. Lovenox SQ - Discharge Medications Prescriptions: Ipratropium/Albuterol Neb [Duoneb] 3 ml IH Q4HR PRN #20 vial.neb PRN Reason: Wheezing Azithromycin [Zithromax] 250 mg PO Q24H #4 tablet metFORMIN [Glucophage] 500 mg PO BIDWM #60 tablet predniSONE [PredniSONE] 10 mg PO DAILY #27 tablet Home Medications: Azithromycin [Zithromax] 250 mg PO Q24H #4 tablet 02/25/17 [Rx] Ipratropium/Albuterol Neb [Duoneb] 3 ml IH Q4HR PRN #20 vial.neb 02/25/17 [Rx] metFORMIN [Glucophage] 500 mg PO BIDWM #60 tablet 02/25/17 [Rx] predniSONE [PredniSONE] 10 mg PO DAILY #27 tablet 02/25/17 [Rx] Allergies/Adverse Reactions: Allergies No Known Allergies Allergy (Verified 02/23/17 15:45) Date of admission: 02/23/17 18:50 Primary care physician: PCP NONE Discharging clinician: Deidra Mendez Anticipated date of discharge: 02/25/17 - Patient Status Disposition: Home, Self-Care Condition: Good Overall status at discharge: patient is progressing back to baseline - Discharge Instructions Follow Up With: NONE,PCP [Primary Care Provider] - Additional Instructions: Begin your steroids tomorrow. Start your antibiotic today. Use your nebulizer treatments only as needed, no more than every 4 hours. If you are having to use them more than that, you need to return to the ER. STay inside during the heat of the day. Start your Metformin tonight. Follow up with your primary care provider for ongoing care and for medication adjustments as needed. Return to the ER as needed for any other problems or concerns or if your symptoms return or worsen. - Diet and Activity Activity: increase activity as tolerated Diet: diabetic diet, low fat, low cholesterol Hospital course: Ms. Hernandez is a 46 year old female who is a smoker, with a pmh of diabetes who persente to the ED with c/o SOB and lightheadedness for 1 week. she reports productive cough with yellow sputum and was trying to treat herself with OTC. Pt states that she became worse until she was lightheaded and SOB. She denies fever or chest pain. Pt was tachycardic and had leukocytosis on arrival and met sepsis criteria. Pt has been wheezing and with decreased lung sounds, aeration has improved, wheezing has remained. Cough has improved and she denies productive cough. Her vitals have stablized and she has been afebrile and leukocytosis has increased, however, pt is getting high dose prednisone. Pt has a history of diabetes and states that she was not adherent with taking her medications due to gastric upset with po and UTI/yeast infection/vaginal pain with injectibles. A1c was 8.1. Pt is agreeable to starting Metformin again and will follow up with PCP for continued care and medication adjustments. She states that she already has a glucometer and test strips at home. Chest xray was negative for acute process. EKG showed ST with baseline artifact , rate 106, WI interval 174, QRS 101, QTc 383. Urine was negative. Labs are WNL other than discussed above. Vitals have been stable. Pt will be sent home with rx for metformin, prednisone taper, duonebs, nebulizer , and zithromax. fruit farmworker is assisting pt with getting prescriptions, pt states that she will be paying walsh. Pt is stable and appropriate for discharge. Time spent discussing smoking cessation with patient: 3 to 10 minutes - Time Spent with Patient Total time spent providing and/or coordinating discharge services: Less than 30 minutes - Constitutional Vitals: Temp Pulse Resp BP Pulse Ox 98.1 F 116 17 115/69 94 02/25/17 06:59 02/25/17 06:59 02/25/17 06:59 02/25/17 06:59 02/25/17 06:59 General appearance: Present: cooperative, A&O X 3, pleasant, no acute distress, obese, answers questions appropriately - Head Head exam: Present: normal inspection - Eye Eye exam: Present: normal appearance, conjuntiva pink - ENT ENT exam: Present: mucous membranes moist, normal exam, normal external ear exam - Neck Neck exam general surgery: Present: normal inspection. Absent: lymphadenopathy , tenderness - Respiratory Respiratory exam: Present: wheezes. Absent: chest wall tenderness, decreased breath sounds, CTAB, rales, respiratory distress, rhonchi, stridor, tachypnea - Cardiovascular Cardiovascular exam: Present: RRR, +S1, +S2. Absent: clicks, diastolic murmur, gallop, systolic murmur - GI/Abdominal GI/Abdominal exam: Present: hepatomegaly, normal bowel sounds, soft. Absent: tenderness - Extremities Exam Extremities exam: Present: normal capillary refill, warm, radial pulses palpable and symetrical. Absent: pedal edema, tenderness - Neurological Exam Neurological exam: Present: alert, oriented X3. Absent: no focal deficits, facial droop, speech deficit - Skin Skin exam: Present: dry, intact, warm. Absent: rash
[2017-02-25] MEDS: Budesonide/Formoterol 160/4.5 MDI IH SCH (10:56)
[2017-02-25 11:07] VITALS: BP 144/88
== END 2017-02-25 15:30 | disposition home or self-care (01) | DRG 720 ==
LOC: EMEROO 15:39 → 3BNU 15:39
PROVIDERS: ADMIT Nurse Practitioner Family; ATTEND Nurse Practitioner Family

== ENCOUNTER 2017-10-10 08:11 | Inpatient (IN) ==
[2017-10-10] MEDS ORDERED: Aspirin 81 MG TAB.CHEW PO ONE (08:20)
[2017-10-10] MEDS ORDERED: GI Cocktail 40 ML EACH PO ONE (08:20)
[2017-10-10] MEDS ORDERED: 0.9 % Sodium Chloride 1,000 ML IVC ONE (08:31)
[2017-10-10] MEDS ORDERED: Ondansetron 4 MG/2 ML VIAL IVP ONE ×2 (08:32→09:01)
[2017-10-10] MEDS ORDERED: *HR* FentaNYL (PF) 100 MCG/2 ML VIAL IVP ONE (08:33)
[2017-10-10] MEDS ORDERED: *HR* Heparin 5,000 UNIT/ML VIAL ONE (08:34)
[2017-10-10] MEDS ORDERED: *HR* Ticagrelor 90 MG TABLET ONE (08:34)
[2017-10-10] MEDS ORDERED: *HR* Ticagrelor 90 MG TABLET PO ONE (08:34)
[2017-10-10] MEDS ORDERED: *HR* Heparin 5,000 UNIT/ML VIAL IVP PRN ×2 (08:34)
[2017-10-10] MEDS ORDERED: *HR* Heparin 5,000 UNIT/ML VIAL IVP ONE (08:34)
[2017-10-10] MEDS ORDERED: 0.9 % Sodium Chloride 1,000 ML ONE ×3 (08:34→09:39)
[2017-10-10] MEDS ORDERED: Aspirin 81 MG TAB.CHEW ONE (08:34)
[2017-10-10] MEDS ORDERED: Heparin 25,000 UNIT/500 ML D5W 25,000 UNIT/500 ML BAG IVC SCH (08:45)
[2017-10-10 08:53] LABS: Basophils # 0.1 K/mcL (0.0-0.2); Basophils % 0.5 %; Eosinophils # 0.1 K/mcL (0.0-0.6); Eosinophils % 0.7 %; Hematocrit 46.6 % (35.3-44.9); Hemoglobin 16.5 g/dL (11.5-15.4); Immature Granulocytes % 0.3 % (0-4); Lymphocytes # 2.2 K/mcL (0.6-4.6); Lymphocytes % 18.3 %; Mean Corpuscular HGB Conc 35.4 g/dL (31.6-35.5); Mean Corpuscular Hemoglobin 31.7 pg (28.0-33.3); Mean Corpuscular Volume 89.4 fL (83.0-100.0); Mean Platelet Volume 9.2 fL (9.4-12.4); Monocytes # 0.6 K/mcL (0.0-1.3); Monocytes % 4.9 %; Neutrophils # 8.9 K/mcL (1.6-8.9); Platelet Count 272 K/mcL (140-400); Red Blood Count 5.21 M/mcL (3.82-4.97); Red Cell Distribution Width 12.9 % (11.5-14.5); Segmented Neutrophils % 75.3 %
[2017-10-10] MEDS ORDERED: *HR* FentaNYL (PF) 250 MCG/5 ML VIAL ONE (08:53)
[2017-10-10] MEDS ORDERED: *HR* Midazolam HCl 5 MG/5 ML VIAL IVP ONE (08:53)
[2017-10-10] MEDS ORDERED: Nitroglycerin 1,000 MCG/10 ML VIAL IV ONE (08:54)
[2017-10-10] MEDS ORDERED: ISOVUE-370 200 ML INFUS..BTL IV ONE (08:54)
[2017-10-10] MEDS ORDERED: Heparin 1,000 UNITS/500 mL 500 ML ONE (08:54)
[2017-10-10] MEDS ORDERED: *HR* Heparin 10,000 UNIT/10 ML VIAL ONE (08:54)
[2017-10-10 08:57] LABS: BUN/Creatinine Ratio 19 (6-26); Blood Urea Nitrogen 14 mg/dL (6-20); Calcium 9.4 mg/dL (8.6-10.3); Carbon Dioxide 23 mEq/L (23-29); Chloride 104 mEq/L (98-107); Glucose 303 mg/dL (70-105); Lipase 84 Units/L (11-82); Osmolality,Calculated 288 (280-300); Potassium 4.2 mEq/L (3.5-5.1); Sodium 133 mEq/L (136-145); eGFR For African Americans > 60 (> 60); eGFR For Non-African Americans > 60 (> 60)
[2017-10-10] MEDS ORDERED: Ondansetron 4 MG/2 ML VIAL ONE (09:02)
[2017-10-10 09:06] LABS: Troponin I 0.05 ng/mL (< 0.04)
--- NOTE | 2017-10-10 09:06 | Emergency Department Note ---
START Narrative - START START: I examined this patient and my medical decision-making was reviewed with the emergency medicine resident. I agree with the documented findings, disposition and treatment plan as described except to the extent set forth below. Patient seen with emergency medicine resident Dr. Jennyfer Melvin, Please see a copy of her note for details of the H&P, ED evaluation, management and disposition. I have independently evaluated the patient and confirmed appropriate portions of the history and physical exam. Briefly: 46-year-old female with multiple risk factors for coronary artery disease presents with acute onset of shortness breath chest pain and pressure with radiation to the neck and arm and slightly diaphoretic and nauseated without vomiting. Initial EKG showed a ST elevation ID with [address] elevation in leads II, III, and F aVF consistent with an for Elimite and reciprocal changes in the lateral leads. Cardiology and catheter lab for paged and cardiology is at bedside as we speak. We have provided 45 minutes of critical care service for this patient, STEMI protocol has been initiated and patient is gotten up her medications. Awaiting transport to the cardiac catheter lab. Patient will then be admitted to the intensive care unit.
[2017-10-10 09:13] LABS: Magnesium 1.8 mg/dL (1.6-2.6)
--- NOTE | 2017-10-10 09:15 | Cardiology History & Physical ---
Date of Encounter: 10/10/17 Time of Encounter: 09:13 Assessment and Plan (1) ST elevation myocardial infarction (STEMI) of inferior wall Current Visit: Yes Status: Acute The assessment and plan as outlined above was discussed with the patient and/or family members who expressed understanding and agreement. All questions were answered. Inferior ST elevations, r/b/a d/w patient and she agrees to proceed with a LHC. Has recieved ACS meds in the ED as above History of Present Illness Chief complaint: chest pain HPI: Ms. Hernandez is a 46 year old female hx of DM, smoker prsents with second episode of chest pain starting 6 am this morning burning RS radiating down both extremities associated with nause. EKG with ST elevations in the Inferior posterior territories. Recieved ASA, Brilinta, heparin in the ED. R/B/A d/w patient and she agrees to proceed with a LHC. Past Med Surg Social Fam HX - Past Medical History Medical history: diabetes Psychiatric history: no psych history - Past Surgical History Surgical History: no surgical history - Social History Smoking Status: Current every day smoker Alcohol use: none Drug use: none - Family History Mother Living Status: Still Living Hx Family Respiratory Disorders: Yes (strep pna) Father Living Status: Hx Family Cancer: Yes (throat) Medications and Allergies Azithromycin [Zithromax] 250 mg PO Q24H #4 tablet 02/25/17 [Rx] Ipratropium/Albuterol Neb [Duoneb] 3 ml IH Q4HR PRN #20 vial.neb 02/25/17 [Rx] metFORMIN [Glucophage] 500 mg PO BIDWM #60 tablet 02/25/17 [Rx] predniSONE [PredniSONE] 10 mg PO DAILY #27 tablet 02/25/17 [Rx] 3 Allergy/AdvReac Type Severity Reaction Status Date / Time No Known Allergies Allergy Verified 10/10/17 08:22 All Systems Review: The remainder of the systems were reviewed and are negative Physical Examination Vital Signs, Last 4 Hours Pulse Resp BP Pulse Ox 10/10/17 09:10 58 24 114/61 99 10/10/17 08:46 99 10/10/17 08:44 73 20 147/111 99 General: Conversant, No Apparent Distress HEENT: Atraumatic, Normocephaly, Mucus Membranes Moist Neck: No JVD, Normal carotid pulses Cardiac: Reg Rate and Rhythm, Normal S1 and S2, No Murmur Lungs: Normal Breath Sounds, No Wheeze, Rales, Rhonchi Neuro: Alert and responsive, No focal deficits noted Abdomen: Soft, Non-Tender Skin: No rashes noted on visualized skin Musculoskeletal: No Chest Wall Tenderness Extremities: No Clubbing, No Cyanosis, No Edema, Normal Pulses Results 10/10/17 08:17 10/10/17 08:17
--- NOTE | 2017-10-10 09:15 | Emergency Department Note ---
Disposition Clinical Impression: ST elevation myocardial infarction (STEMI) Qualifiers: Involved coronary artery: right coronary artery Qualified Code(s): I21.11 - ST elevation (STEMI) myocardial infarction involving right coronary artery Disposition: Admitted As Inpatient Condition: Good Referrals: NONE,PCP [Primary Care Provider] - Forms: ED Satisfaction Letter Time of Disposition: 10:23 General Adult HPI - General Chief complaint: ED Chest Pain Stated complaint: Chest pain Time Seen by Provider: 10/10/17 08:15 Source: patient Limitations: no limitations Nursing Notes Reviewed: Yes Vital Signs Reviewed: Yes - History of Present Illness HPI Narrative: Patient began having a burning sensation in her chest this morning after she woke up around 5:30. Complaining of a funny feeling in her arms. She states that she has been trying to hold them up all night is the feeling that she has. Nauseated. No cardiac history. No radiation of the pain. Burning sensation. Pain Scale: 8 - Related Data Previous Rx's Medication Instructions Recorded Azithromycin [Zithromax] 250 mg PO Q24H #4 tablet 02/25/17 Ipratropium/Albuterol Neb [Duoneb] 3 ml IH Q4HR PRN #20 vial.neb 02/25/17 metFORMIN [Glucophage] 500 mg PO BIDWM #60 tablet 02/25/17 predniSONE [PredniSONE] 10 mg PO DAILY #27 tablet 02/25/17 Allergies Allergy/AdvReac Type Severity Reaction Status Date / Time No Known Allergies Allergy Verified 10/10/17 08:22 All systems ED: reviewed and negative except as stated. Constitutional: Denies: fever ENT ED: Denies: congestion Cardiovascular: Reports: chest pain. Denies: syncope Respiratory: Reports: dyspnea. Denies: cough Gastrointestinal: Reports: nausea, vomiting. Denies: abdominal pain, diarrhea, hematemesis, melena, hematochezia Genitourinary: Denies: urgency, dysuria, frequency Musculoskeletal: Reports: other (Funny feeling in bilateral arms.). Denies: back pain Past Medical History - Past Medical History Attestation: Yes The following information was validated with the patient. Medical history: Reports: diabetes Surgical history: Reports: no surgical history Psychiatric history: Reports: no psych history - Social History Smoking Status: Current every day smoker Alcohol use: Reports: none Drug use: Reports: none Physical Exam - General Limitations: no limitations General appearance: alert, in no apparent distress - Head Head exam: atraumatic, normocephalic, normal inspection - Eye Eye exam: Present: normal appearance, PERRL, EOMI. Absent: scleral icterus - ENT ENT exam: normal exam, normal oropharynx, mucous membranes moist - Neck Neck exam: Present: normal inspection, full ROM, trachea midline. Absent: tenderness - Chest Chest inspection: Present: normal inspection, symmetric chest wall rise. Absent : tenderness - Respiratory Respiratory exam: Present: normal lung sounds bilaterally. Absent: respiratory distress, accessory muscle use - Cardiovascular Cardiovascular exam: Present: regular rate, normal rhythm, normal heart sounds - Abdominal Exam Abdominal exam: Present: soft. Absent: distention - Extremities Exam Extremities exam: Present: normal inspection, full ROM. Absent: tenderness, pedal edema - Back Exam Back exam: Present: normal inspection, full ROM. Absent: tenderness - Neurological Exam Neurological exam: Present: alert, oriented X3 - Psychiatric Psychiatric exam: Present: normal affect, normal mood - Skin Skin exam: Present: warm, dry, intact, normal color Course Course Narrative: Female patient presenting to the emergency department in distress. She is uncomfortable resting in bed. She is complaining of a burning sensation in her lungs. She is also complaining of a "funny feeling" in her arms bilaterally. She states that she woke up around 5:30 this morning with this discomfort. She is constantly holding her chest. She denies chest pain and keeps stating that she just having a burning sensation. She said the burning sensation feels like a sunburn to her lungs. She is a diabetic. She has no cardiac history. She states that she did have bronchitis but that resolved 3 weeks ago. Her lung sounds are clear heart tones are normal. She is restless in bed. Patient also reports nausea. Initially a GI cocktail was ordered to assist with her ACS workup in the help with the burning sensation as an EKG was being performed. Patient was found to have ST elevations in leads 2, 3, and aVF. A STEMI alert was called. Patient was given aspirin Brilinta and heparin flush. Patient is nauseated is that she was given Zofran. Patient was taken to the [facility]. - Consultations Consultation #1: Dr Post was contacted and alerted of the ST elevation in leads 2, 3, avf Time: 08:38 Vital Signs Temperature 97.5 F L 10/10/17 08:17 Pulse Rate 73 10/10/17 08:17 Respiratory Rate 20 10/10/17 08:17 Blood Pressure 152/106 10/10/17 08:17 O2 Sat by Pulse Oximetry 100 10/10/17 08:17 Temperature 97.5 F L 10/10/17 08:17 Pulse Rate 58 10/10/17 09:10 Respiratory Rate 24 10/10/17 09:10 Blood Pressure 114/61 10/10/17 09:10 O2 Sat by Pulse Oximetry 99 10/10/17 09:10 Oxygen Delivery Oxygen Delivery Room Air Medical Decision Making - Lab Data Result diagrams: 10/10/17 08:17 10/10/17 08:17 Lab Results 10/10/17 10/10/17 10/10/17 Range/Units 08:17 08:17 08:17 WBC 11.9 H (4.3-11.1) K/mcL RBC 5.21 H (3.82-4.97) M/mcL Hgb 16.5 H (11.5-15.4) g/dL Hct 46.6 H (35.3-44.9) % MCV 89.4 (83.0-100.0) fL MCH 31.7 (28.0-33.3) pg MCHC 35.4 (31.6-35.5) g/dL RDW 12.9 (11.5-14.5) % Plt Count 272 (140-400) K/mcL MPV 9.2 L (9.4-12.4) fL Immature Gran % 0.3 (0-4) % Seg Neutrophils % 75.3 % Lymphocytes % 18.3 % Monocytes % 4.9 % Eosinophils % 0.7 % Basophils % 0.5 % Neutrophils # 8.9 (1.6-8.9) K/mcL Lymphocytes # 2.2 (0.6-4.6) K/mcL Monocytes # 0.6 (0.0-1.3) K/mcL Eosinophils # 0.1 (0.0-0.6) K/mcL Basophils # 0.1 (0.0-0.2) K/mcL PT 9.8 (9.4-12.1) Seconds INR 0.9 APTT 27.7 (26.0-36.0) Seconds Sodium 133 L (136-145) mEq/L Potassium 4.2 (3.5-5.1) mEq/L Chloride 104 (98-107) mEq/L Carbon Dioxide 23 (23-29) mEq/L BUN 14 (6-20) mg/dL Creatinine 0.72 (0.60-1.20) mg/dL Est GFR ( Amer) > 60 (> 60) Est GFR (Non-Af Amer) > 60 (> 60) BUN/Creatinine Ratio 19 (6-26) Glucose 303 H (70-105) mg/dL Calculated Osmolality 288 (280-300) Calcium 9.4 (8.6-10.3) mg/dL Magnesium 1.8 (1.6-2.6) mg/dL Troponin I 0.05 H* (< 0.04) ng/mL Lipase 84 H (11-82) Units/L - Radiology Data Radiology results reviewed: Yes I reviewed the patient's radiology results. Chest X-Ray 10/10/17 08:20 IMPRESSION: No acute cardiopulmonary process. D/ / 10/10/2017 09:15:04 Venu Morton MD / Kisha Beach Interpreting Provider: Venu Morton MD
[2017-10-10 09:17] LABS: INR 0.9; Prothrombin Time 9.8 Seconds (9.4-12.1)
--- NOTE | 2017-10-10 09:17 | Pre-Sedation Evaluation ---
Pre-sedation evaluation - Pre-sedation checklist Date of procedure: 10/10/17 Procedure: LHC Recent Vitals: Last Vital Signs Temp 97.5 F L 10/10/17 08:17 Pulse 58 10/10/17 09:10 Resp 24 10/10/17 09:10 BP 114/61 10/10/17 09:10 Pulse Ox 99 10/10/17 09:10 ASA Classification *see protocol: CLASS II-Mild systemic disease Plan of Care: Pt appropriate candidate for procedure/moderate/conscious sedation
[2017-10-10 09:20] LABS: Activated Partial Thrombo Time 27.7 Seconds (26.0-36.0)
[2017-10-10] MEDS ORDERED: Tirofiban 5 MG/100 mL 5 MG/100 ML VIAL IV ONE (09:33)
[2017-10-10] MEDS ORDERED: Tirofiban 12.5 MG/250ML 12.5 MG/250 ML BAG ONE (09:35)
[2017-10-10] MEDS ORDERED: Tirofiban 12.5 MG/250ML 12.5 MG/250 ML BAG IVC SCH (10:15)
--- NOTE | 2017-10-10 10:16 | Invasive Diagnostic Lab Proc ---
Name: Kaleb Hernandez Date of Study: 10/10/2017 Date: 1970 Ht: 65.0in Medical Record#: [id number] Age: 46 Wt: 200.62lb Gender: Female BSA: 1.98 Order #: [id number] BMI: 33.43 Physicians Procedure Physician: Sona Post MD Referring MD: Referring MD: Staff Name Position Time In Nancy Dill RT (R) Monitor 09:25 AM Edouard Connor RN Machine Deicer Element Winder 09:25 AM RenanStefany RT (R) Scrub 09:25 AM Indications Indication STEMI Procedures Performed Procedure PRQ CARD REVASC NM 1 VSL L HRT ARTERY/VENTRICLE ANGIO Pre-Procedure Checklist Informed consent is complete signed and on chart. H&P is on chart. ID band is on and ID verified with patient. Patient NPO for procedure The procedure was described for the patient and questions were answered. Blood Pressure: 145/94 ECG is on chart. Rhythm: NSR Plan of Care Patient will tolerate the procedure without complications. Adequate level of comfort will be maintained. Hemodynamics will remain stable Patient will recover from procedure without complications. Respiratory function will be maintained. Cardiac rhythm will remain stable. Patient temperature will be maintained. Patient and/or family have verbalized understanding of the procedure. Patient Education Intravenous Access Time IV Size Location DC'd Fluid/Drip Rate Units RN 09:25 AM 18g 1 1/4" Patent On Arrival Lt Antecubital 0.9NaCl ml/hr 16 Rt Antecubital ml/hr Allergies NONE KNOWN No Known Allergies Vital Signs Time BP (mmHg) HR (bpm) O2 Sat. RR (bpm) LOC 09:25 AM 145 / 94 68 99 % 15 09:27 AM / % 4 = Oriented but drowsy 09:27 AM / % 4 = Oriented but drowsy 09:23 AM 145 / 94 86 100 % 19 09:28 AM 148 / 92 74 99 % 18 09:33 AM 139 / 86 71 99 % 18 09:38 AM 139 / 82 67 98 % 19 09:43 AM 109 / 66 67 98 % 21 09:48 AM 117 / 69 66 98 % 22 09:53 AM 123 / 74 78 100 % 18 09:42 AM / % 4 = Oriented but drowsy Procedural Medications Time Medication Dose Units Method Given By 09:26 AM Oxygen 2 L/min nasal cannula Edouard Connor RN 09:26 AM Versed 0.5 mg Intravenous Edouard Connor RN 09:26 AM Fentanyl 25 mcg Intravenous Edouard Connor RN 09:28 AM Lidocaine 2% 12 ml Subcutaneous Sona Post MD 09:28 AM Versed 0.5 mg Intravenous Edouard Connor RN 09:29 AM Fentanyl 25 mcg Intravenous Edouard Connor RN 09:33 AM Aggrastat Bolus: 46 ml Intravenous Edouard Connor RN 09:34 AM Aggrastat 12.5mg/250ml 16.5 ml Intravenous Edouard Connor RN 09:41 AM Nitroglycerin 100 mcg Intracoronary Talha Post MD 09:42 AM Nitroglycerin 100 mcg Intracoronary Talha Pots MD 09:54 AM Lidocaine 2% 8 ml Subcutaneous Sona Post MD Dejuan Score Preprocedure Postprocedure Activity 2- Moves 4 extremities sustained head lift Activity 2- Moves 4 extremities sustained head lift Circulation 2- SBP +/= 20 points of pre-anesthetic level Circulation 2- SBP +/= 20 points of pre-anesthetic level Consciousness 2- Awake and alert oriented x 3 Consciousness 2- Awake and alert oriented x 3 O2 Saturation 2- Able to maintain O2 satruation of 92% on room air O2 Saturation 2- Able to maintain O2 satruation of 92% on room air Respiratory 2- Able to deep breathe and cough well Respiratory 2- Able to deep breathe and cough well Total Score 10 Total Score 10 Contrast Agent: Isovue Diagnostic Contrast: 100 ml Total Contrast: 100 ml Fluoro Dose: 556 mGy Activated Clotting Time Time Seconds to Clot 09:37 AM 374 Procedure Log Time Note Enter By 09:12 AM CathStat 09:22 AM Vitals capture started with the following parameters, Patient=Adult, Interval=5 min, Initial Comsmgnv=625 mmHg, Deflation Rate=5 mmHg, Cuff placed on Right Arm 09:22 AM Pressure channel 1 zero failed. 09:22 AM Recorded ECG: HR=71 Condition=Condition 1 09:23 AM HR=86 bpm, AMKI=207/94 mmhg, HcF4=832.0 %, Resp=19 B/min, Comment=NSR 09:25 AM Pt arrived to laboratory technician 2 at 09:25 [email or web address] 09:25 AM Nancy Dill RT (R) Position: Monitor Time in: 09:25 [email or web address] 09:25 AM Edouard Connor RN Position: Machine Deicer Element Winder Time in: 09:25 [email or web address] 09:25 AM Stefany Urrutia RT (R) Position: Scrub Time in: 09: [email or web address] 09:25 AM Patient charges- Angio tray pack, Navilyst 3mm J, Pulse Oximetry and ACIST tubing and transducer [email or web address] 09:25 AM IV Supplies used: J loop Angio Cath. [email or web address] 09:25 AM Case Delayed No [email or web address] 09: AM Hair removed from procedure site in holding area using clippers. Bilateral groin prepped with Chloraprep by Nancy Dill RT (R), then patient was draped. Skin intact. [email or web address] 09: AM Physican paged/called :. [email or web address] 09: AM Physician arrived : [email or web address] 09: AM Meet and skylar completed [email or web address] : AM Sign in performed according to hospital policy. [email or web address] 09: AM Procedure start : [email or web address] : AM Time: : Oxygen on at 2 L/min per nasal cannula by Edouard Connor RN [email or web address] : AM Time: : Versed 0.5 mg Intravenous Given by Edouard Connor RN [email or web address] : AM Time: : Fentanyl 25 mcg Intravenous Given by Edouard Connor RN [email or web address] 09: AM Time: : Patient comfortable and pain free: Yes [email or web address] 09: AM Time: LOC: 4 = Oriented but drowsy [email or web address] : AM Time out performed according to hospital policy [email or web address] : AM HR=74 bpm, WMXN=033/92 mmhg, SpO2=99.0 %, Resp=18 B/min, Comment=NSR : AM Reference ECG taken : AM Pressure channel 1 zeroed. : AM Time: : 12 ml Lidocaine 2% to right groin Subcutaneous Given by Sona Post MD [email or web address] 09: AM Time: : Versed 0.5 mg Intravenous Given by Edouard Connor RN [email or web address] : AM Time: Fentanyl 25 mcg Intravenous Given by Edouard Connor RN [email or web address] 09:29 AM Micro-Introducer Kit utilized for sheath placement 09:30 AM Access obtained by percutaneous puncture. 6Fr 10cm Cordis Tisha sheath placed in right Femoral artery. [id number] 3 09:30 AM 0.035 145cm Navilyst 3mmJ wire [id number] dontae 09:30 AM 6Fr JR 4 Runway guide catheter was used to cannulate the PCI vessel successfully. reused? No [email or web address] 09:32 AM RCA angiography performed in multiple views. 09:32 AM Inflation device was opened. 09:32 AM .014 BMW Vass 190cm guide wire across target lesion- successful. reused? No [email or web address] 09:32 AM Recorded Pressure: Ao, HR=67, Condition=Condition 1 (Aorta) Ao 153/88/116 09:33 AM HR=71 bpm, XUZA=228/86 mmhg, SpO2=99.0 %, Resp=18 B/min, Comment=NSR 09:33 AM Recorded Pressure: Ao, HR=72, Condition=Condition 1 (Aorta) Ao 149/90/116 09:34 AM Time: 09:33 Aggrastat Bolus: 46 ml Intravenous Given by Edouard Connor RN Powell pump [email or web address] 09:34 AM Time: 09:34 Aggrastat 12.5mg/250ml 16.5 ml Intravenous Given by Edouard Connor RN Powell pump [email or web address] 09:34 AM 2.0 mm x 12 mm Emerge Monorail balloon across target lesion- successful. reused? No 09:35 AM Balloon inflated @ 6 chivo for 12 seconds 3 09:35 AM Balloon inflated @ 6 chivo for 9 seconds [email or web address] 09:36 AM Balloon inflated @ 6 chivo for 9 seconds [email or web address] 09:37 AM At 09:37 the ACT was 374 seconds. 3 09:37 AM Balloon catheter removed intact. 3 09:38 AM 3.5mm x 20mm Synergy drug-eluting stent across target lesion- successful Lot #[id number] [email or web address] 09:38 AM HR=67 bpm, LFVG=715/82 mmhg, SpO2=98.0 %, Resp=19 B/min, Comment=NSR 09:39 AM Stent deployed @ 9 chivo for 11 seconds [email or web address] 09:40 AM Stent balloon reinflated @ 14 chivo for 10 seconds [email or web address] 09:41 AM Stent delivery system removed intact. [email or web address] 09:41 AM Time: 09:41 Nitroglycerin 100 mcg Intracoronary Given by Talha Post [email or web address] 09:41 AM Recorded Pressure: Ao, HR=61, Condition=Condition 1 (Aorta) Ao 100/59/75 09:42 AM Time: :27 Patient comfortable and pain free: Yes [email or web address] 09:42 AM Time: 09:27LOC: 4 = Oriented but drowsy [email or web address] 09:42 AM Time: :42 Nitroglycerin 100 mcg Intracoronary Given by Talha Post [email or web address] 09:42 AM Coronary Dominance: right [email or web address] 09:43 AM HR=67 bpm, CXCD=203/66 mmhg, SpO2=98.0 %, Resp=21 B/min, Comment=NSR 09:43 AM Guide wire removed intact. [email or web address] 09:43 AM Guide catheter removed intact. [email or web address] 09:44 AM 5Fr FL 4 catheter inserted over the wire DN [email or web address] 09:44 AM LCA angiography performed in multiple views. [email or web address] 09:45 AM Recorded Pressure: Ao, HR=73, Condition=Condition 1 (Aorta) Ao 103/77/90 09:46 AM Recorded Pressure: Ao, HR=79, Condition=Condition 1 (Aorta) Ao 98/74/85 09:47 AM Catheter removed [email or web address] 09:47 AM 5Fr Pigtail catheter inserted over the wire DN [email or web address] 09:47 AM Catheter selectively placed in left ventricle [email or web address] 09:47 AM Bolus angiogram of left Ventricle complete: 10 ml/sec for a total of 20 mls [email or web address] 09:48 AM HR=66 bpm, FCLR=718/69 mmhg, SpO2=98.0 %, Resp=22 B/min, Comment=NSR 09:48 AM Recorded Pressure: LV, HR=85, Condition=Condition 1 (Left Ventricle) LV 107/21/31 09:48 AM Recorded Pressure: LV, HR=82, Condition=Condition 1 (Left Ventricle) LV 116/22/23 09:49 AM Recorded Pressure: LV, Ao, HR=83, Condition=Condition 1 (Left Ventricle) LV 116/25/28, (Aorta) Ao 117/21/68 09:50 AM Catheter removed [email or web address] 09:50 AM Bolus angiogram of right Femoral complete: 4 ml/sec for a total of 7 mls [email or web address] 09:51 AM Procedure completed at 09:51 [email or web address] 09:52 AM Did you address MICHAELA flow and Dominance? Yes [email or web address] 09:52 AM Sign out completed: Radiation Dose 556.04 mGy Fluoro Time: 5.5 Isovue 370 - 200ml contrast 100 ml given by Sona Post MD. Complications: NoneCardiac Rehab Consult needed: YesConfirmed administered medications: Yes [email or web address] 09:52 AM Isovue 370 - 200ml,1 Bottle(s) used. [email or web address] 09:52 AM Arterial sheath pulled, Angio-seal closure device used and was Successful S/N. [email or web address] 09:53 AM HR=78 bpm, QQXU=405/74 mmhg, CvZ8=742.0 %, Resp=18 B/min, Comment=NSR 09:54 AM Time: 09:54 8 ml Lidocaine 2% to right groin Subcutaneous Given by Sona Post MD [email or web address] 09:55 AM Site status No bleeding/hematoma - Rt Groin as reported by Stefany Urrutia RT (R) at 09:55 [email or web address] 09:55 AM Opsite applied [email or web address] 09:55 AM Delay to floor No [email or web address] 09:55 AM Family placed in consult room. [email or web address] 09:55 AM Complications: None [email or web address] 09:55 AM Fluoro Time: 5.5 [email or web address] 09:55 AM Isovue 370 - 200ml contrast [address] Post. [email or web address] 09:55 AM Radiation Dose 556.04 mGy [email or web address] 09:57 AM Time: 09:42LOC: 4 = Oriented but drowsy [email or web address] 09:57 AM Time: 09:42 Patient comfortable and pain free: Yes [email or web address] 10:04 AM Report given to Regla MABRY Pt taken to ICU Room #3. 10:04 [email or web address] 10:05 AM Patient out of room: 10:05 [email or web address] Complications Complication None None Hemodynamics Pressures Site Systolic/A Wave Diastolic/V Wave Mean AO 153 88 116 AO 149 90 116 AO 100 59 75 AO 103 77 90 AO 98 74 85 LV 107 21 31 LV 116 22 23 LV 116 25 28 AO 117 21 68 Post Procedure Information Post procedural instructions were given Site Checks Time Location Status Staff Sheath In? Note 09:55 AM Rt Groin No bleeding/hematoma Stefany Urrutia RT (R) Pulses Time Site Pre-Procedure Post-Procedure Note 10/10/2017 9:25:00 AM Bilateral DP & PT 1+ 10/10/2017 9:25:00 AM Updated by Nancy Dill RT(R) on 10/10/2017 10:06:26 AM electronically signed on 10/10/2017 10:07:01 AM with status of Final
[2017-10-10] MEDS ORDERED: Perflutren Lipid Microsphere 1.3 ML in 0.9 % Sodium Chloride 8.7 ML IVP ONE (11:43)
[2017-10-10] MEDS ORDERED: D5% in Water 1,000 ML IVC PRN (12:27)
[2017-10-10] MEDS ORDERED: Dextrose Gel 15 GM/37.5 ML TUBE PO PRN ×2 (12:27)
[2017-10-10] MEDS ORDERED: *HR* Dextrose 50 % in Water (Syg) 50 ML SYRINGE IVP PRN (12:27)
[2017-10-10] MEDS: Insulin LISPRO 300 UNITS/3 ML VIAL SQ SCH ×2 (12:50→18:14)
[2017-10-10] MEDS: *HR* Ticagrelor 90 MG TABLET PO SCH (20:07)
[2017-10-10] MEDS ORDERED: Insulin LISPRO 300 UNITS/3 ML VIAL SQ SCH (21:00)
[2017-10-11 02:56] LABS: Basophils # 0.1 K/mcL (0.0-0.2); Basophils % 0.4 %; Eosinophils # 0.1 K/mcL (0.0-0.6); Eosinophils % 0.4 %; Hematocrit 42.7 % (35.3-44.9); Immature Granulocytes % 0.3 % (0-4); Lymphocytes # 2.3 K/mcL (0.6-4.6); Lymphocytes % 19.6 %; Mean Corpuscular HGB Conc 34.9 g/dL (31.6-35.5); Mean Corpuscular Hemoglobin 31.9 pg (28.0-33.3); Mean Corpuscular Volume 91.4 fL (83.0-100.0); Mean Platelet Volume 9.3 fL (9.4-12.4); Monocytes # 0.6 K/mcL (0.0-1.3); Monocytes % 4.8 %; Neutrophils # 8.9 K/mcL (1.6-8.9); Platelet Count 232 K/mcL (140-400); Red Blood Count 4.67 M/mcL (3.82-4.97); Red Cell Distribution Width 12.7 % (11.5-14.5); Segmented Neutrophils % 74.5 %
[2017-10-11 02:57] LABS: Hemoglobin 14.9 g/dL (11.5-15.4)
[2017-10-11 03:15] LABS: BUN/Creatinine Ratio 16 (6-26); Blood Urea Nitrogen 11 mg/dL (6-20); Calcium 8.9 mg/dL (8.6-10.3); Carbon Dioxide 23 mEq/L (23-29); Chloride 104 mEq/L (98-107); Glucose 259 mg/dL (70-105); Osmolality,Calculated 290 (280-300); Potassium 3.9 mEq/L (3.5-5.1); Sodium 136 mEq/L (136-145); eGFR For African Americans > 60 (> 60); eGFR For Non-African Americans > 60 (> 60)
[2017-10-11] MEDS ORDERED: Aspirin 81 MG TAB.CHEW PO SCH (09:00)
[2017-10-11] MEDS: Insulin LISPRO 300 UNITS/3 ML VIAL SQ SCH ×3 (09:12→16:12)
[2017-10-11] MEDS: *HR* Ticagrelor 90 MG TABLET PO SCH ×2 (09:12→19:57)
--- NOTE | 2017-10-11 13:45 | Cardiology Progress Note ---
Date of Encounter: 10/11/17 Time of Encounter: 13:42 Assessment and Plan (1) ST elevation myocardial infarction (STEMI) of inferior wall Current Visit: Yes Status: Acute The assessment and plan as outlined above was discussed with the patient and/or family members who expressed understanding and agreement. All questions were answered. Inferior STEMI. S/p PCI to the mRCA. There was no complication from the procedure. Denies recurrent chest pain. Importance of DAPT with asa and plavix uninterrupted for minimum of one year discussed and she voiced understanding. Continue statin. Add BB. Activity restrictions reviewed as stated above.Cardiac rehab ordered. Out-pt f/u will be coordinated by [facility]. Will step down to telemetry floor. Ambulate in hallway to access pain in leg. She feels that she is having pain similar to previous menstrual cramps. Will monitor Hgb. Denies back pain No significant hematoma on palpation this morning on exam. (2) Diabetes mellitus type 2 in obese Current Visit: No Status: Chronic Continue SSI. Verify home meds to continue. Check Hgb A1c. Discussion w patient/family: The assessment and plan as outlined above was discussed with the patient and/or family members who expressed understanding and agreement. All questions were answered. Thank you for involving us in the care of your patient. Please call with any questions. Subjective Principal diagnosis: STEMI Interval history: Ms. Hernandez denies recurrent chest pain. C/o discomfort in right groin. States that it may be related to menstrual cramps, similar to pain she experienced before. Objective Vital Signs, Last 4 Hours Temp 10/11/17 12:00 98.2 F General: Conversant, No Apparent Distress HEENT: Atraumatic, Normocephaly, Mucus Membranes Moist Neck: No JVD, Normal carotid pulses Cardiac: Reg Rate and Rhythm, Normal S1 and S2, No Murmur Lungs: Normal Breath Sounds, No Wheeze, Rales, Rhonchi Neuro: Alert and responsive, No focal deficits noted Abdomen: Soft, Non-Tender Skin: No rashes noted on visualized skin Musculoskeletal: No Chest Wall Tenderness Extremities: No Clubbing, No Cyanosis, No Edema, Normal Pulses, Other (right groin dressing removed. Dime sized knot noted at femoral access site. Tender to palpation. No significant hematoma palpated. ) Results 10/11/17 02:46 10/11/17 02:46 Lab Results 10/11/17 10/11/17 02:46 02:46 WBC 11.9 H Hgb 14.9 D Hct 42.7 Plt Count 232 Sodium 136 Potassium 3.9 Chloride 104 Carbon Dioxide 23 BUN 11 Creatinine 0.67 Glucose 259 H Calcium 8.9 - Imaging and Cardiology Echo: report reviewed - EKG Interpretation EKG results cardiology: personally reviewed - VTE Reasons for not Prescribing Prophylaxis: Not indicated-Anticoagulated or INR therapeutic Consult Discharge Plan - Plan Referrals: NONE,PCP [Primary Care Provider] -
[2017-10-11] MEDS ORDERED: *HR* Dextrose 50 % in Water (Syg) 50 ML SYRINGE IVP PRN (14:24)
[2017-10-11] MEDS ORDERED: Dextrose Gel 15 GM/37.5 ML TUBE PO PRN ×2 (14:24)
[2017-10-11] MEDS ORDERED: D5% in Water 1,000 ML IVC PRN (14:24)
[2017-10-11] MEDS ORDERED: *HR* Heparin 5,000 UNIT/ML VIAL SQ SCH ×2 (18:00)
[2017-10-11] MEDS ORDERED: Insulin LISPRO 300 UNITS/3 ML VIAL SQ SCH (21:00)
[2017-10-12] MEDS: *HR* Ticagrelor 90 MG TABLET PO SCH (08:00)
[2017-10-12] MEDS: Insulin LISPRO 300 UNITS/3 ML VIAL SQ SCH ×2 (08:03→13:09)
[2017-10-12 08:21] VITALS: BP 119/70
--- NOTE | 2017-10-12 08:24 | Discharge Summary ---
- NOTES TO OUTPATIENT PROVIDER Notes to Outpatient Provider: Hgb A1c pending. Orders not resulted at time of discharge: Pending orders 10/11/17 07:00 ECG 12 lead ECG [ECG] Routine 10/12/17 08:21 BMP [Basic Metabolic Panel] Routine Complete Blood Count [HEME] Routine Date of Encounter: 10/12/17 Time of Encounter: 08:21 - Discharge Diagnosis (1) ST elevation myocardial infarction (STEMI) of inferior wall Priority: Primary Status: Acute (2) Diabetes mellitus type 2 in obese Priority: Secondary Status: Chronic - Hospital Course Hospital course: Ms. Hernandez is a 46 year old female who presented with chest pain and was found to have acute inferior HI. She was taken to the cardiac catheterization lab emergently and she received MARITZA to her mRCA. EF 50%. TTE showed EF 55%. There was no WMA, mild diastolic dysfunction, and mild MR. There was no complication from the procedure. She has a past medical history of DM type II and HTN. B/p is well controlled. Blood sugars noted to be elevated during stay despite moderate SSI. Patient reported she was not taking metformin at home due to side effects. Hgb A1C was 8.1 in February 2017. Hospitalist consulted. She was started on levimer at home. DM educator referral ordered. She will be scheduled with resident clinic in 1-2 weeks. Appt with [facility] will be made in 1 week. There is no problem noted with right femoral access site. Denies pain today. No hematoma. Importance of DAPT with asa and brilinta uninterrupted for minimum of one year discussed and she voiced understanding. Medications are being filled at [facility] prior to discharge. Time spent discussing smoking cessation with patient: 3 to 10 minutes - Time Spent with Patient Total time spent providing and/or coordinating discharge services: Greater than 30 minutes (D/c teaching including medications, accu checks, activity restrictions, medication rec,) - Discharge Medications Prescriptions: Aspirin 81 mg PO DAILY #30 tab.chew Atorvastatin [Lipitor] 40 mg PO HS #30 tablet Insulin DETEMIR [Levemir Flextouch] 10 unit SQ BID #10 mls Metoprolol [Lopressor] 25 mg PO BID #60 tablet Ticagrelor [Brilinta] 90 mg PO BID #60 tablet Home Medications: Aspirin 81 mg PO DAILY #30 tab.chew 10/12/17 [Rx] Atorvastatin [Lipitor] 40 mg PO HS #30 tablet 10/12/17 [Rx] Insulin DETEMIR [Levemir Flextouch] 10 unit SQ BID #10 mls 10/12/17 [Rx] Metoprolol [Lopressor] 25 mg PO BID #60 tablet 10/12/17 [Rx] Ticagrelor [Brilinta] 90 mg PO BID #60 tablet 10/12/17 [Rx] Allergies/Adverse Reactions: 3 Allergy/AdvReac Type Severity Reaction Status Date / Time No Known Allergies Allergy Verified 10/10/17 12:15 Date of admission: 10/10/17 08:43 Primary care physician: PCP NONE Consults: 10/10/17 10:02 Consult to Cardiac Rehabilitation-Phase1 [CONS] Routine Comment: Reason for Consult: AMI Call Completed: Yes Consult to Nurse Navigator [CONS] Routine Comment: Discharging clinician: Milad Guerin Anticipated date of discharge: 10/12/17 Physical Examination Vital Signs, Last 4 Hours Temp Pulse Resp BP Pulse Ox 10/12/17 08:18 84 19 119/70 97 10/12/17 08:16 98.3 F 10/12/17 05:00 73 20 97 General: Conversant, No Apparent Distress HEENT: Atraumatic, Normocephaly, Mucus Membranes Moist Neck: No JVD, Normal carotid pulses Cardiac: Reg Rate and Rhythm, Normal S1 and S2, No Murmur Lungs: Normal Breath Sounds, No Wheeze, Rales, Rhonchi Neuro: Alert and responsive, No focal deficits noted Abdomen: Soft, Non-Tender Skin: No rashes noted on visualized skin Musculoskeletal: No Chest Wall Tenderness Extremities: No Clubbing, No Cyanosis, No Edema, Normal Pulses, Other (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 ) Forms: ED Satisfaction Letter Additional Instructions: RISK FACTORS: STOP SMOKING: If you smoke, STOP. Smoking or tobacco use significantly increases your risk of heart disease because nicotine causes the arteries to narrow or constrict. It also causes fats to stick to the artery. Your chances of having a heart attack are greatly increased if you continue to smoke. For more information, call the education line for smoking cessation 4-684-NTRAORG EAT A LOW FAT/CHOLESTEROL/SODIUM DIET: This diet may help reduce your chances of having a heart attack. LIFTING: Avoid lifting anything more than 10 pounds for 5-7 days Prior to straining, laughing, sneezing and/or coughing, apply manual pressure directly over insertion site. ACTIVITY: You may walk or climb stairs as tolerated You can resume sexual activity as tolerated In general, you are encouraged to engage in a minimum of 30 minutes or more of moderate intensity physical activity, such as brisk walking, daily or at least 3 -4 times weekly BATHING Do not submerge the site into water (bath tub, hot tub, swimming pool) for 1 week. This can be a source for infection into the blood stream. You may shower after 24 hours SITE CARE: After 24 hours, you may remove the dressing and leave the site open to air. Keep the site clean and dry. Clean gently and pat dry. You can expect bruising and tenderness that gradually resolve within a week or two. Return to work as instructed per your physician Resume driving as instructed per physician Keep all scheduled follow up appointments Resume medications as instructed IMPORTANT: If prescribed a Platelet Aggregation Inhibitor such as, Plavix, Brilinta or Effient: Duration of therapy is minimum one year These medications are often used in combination with Aspirin in prevention of future heart attacks Never discontinue unless consult with your Sander [facility] STROKE (CVA) Risk factors for a stroke are: Age, cigarette smoking, diabetes, excessive alcohol consumption, family history, high blood pressure, overweight, physical inactivity, prior stroke, heart attack, diagnosis of carotid artery stenosis or other artery disease. Warning signs: Sudden numbness or weakness of the face, arm or leg; especially on one side of the body, sudden confusion, trouble speaking or understanding, sudden trouble seeing in one or both eyes, sudden trouble walking, dizziness, loss of balance or coordination, sudden severe headache with no cause. Call 911 or go to the Emergency Room. CONGESTIVE HEART FAILURE: If you have been diagnosed with Congestive Heart Failure (CHF) and your symptoms return, make an appointment with your physician Weigh yourself daily. Notify your physician if you have a weight gain of two or more pounds in one day or five or more pounds in one week. If you experience any difficulty breathing, please call 911 BLEEDING: Although the risk of bleeding is minimal, it can happen. If you have any bleeding from the site, apply firm pressure above the puncture site for 10-15 minutes. If the bleeding does not stop, continue manual pressure and call 911 Contact your physician if: You develop a fever greater than 101 degrees Fahrenheit Your site becomes reddened or has any drainage You have an increase in pain or burning at the site or if a large knot forms at the site. If you experience chest pain, shortness of breath, dizziness, or extreme tiredness, stop the activity and rest. Please notify your physicians office if you experience any of these symptoms and they are not relieved by rest please call 911! - Diet and Activity Activity: increase activity as tolerated Diet: low fat, low cholesterol - VTE Reasons for not Prescribing Prophylaxis: Not indicated-Anticoagulated or INR therapeutic
[2017-10-12] MEDS ORDERED: Aspirin 81 MG TAB.CHEW PO SCH (09:00)
--- NOTE | 2017-10-12 09:08 | Event Note ---
Date of Encounter: 10/12/17 Time of Encounter: 09:06 - Cardiology Event Note Discharge teaching given. Patient reports she was not taking her metformin at home due to diarrhea and stomach upset. Hgb A1c 8.1 last February. Hospitalist consulted for recommendation on medical therapy. Out-pt f/u to be scheduled to establish PCP.
[2017-10-12 09:10] LABS: Basophils # 0.1 K/mcL (0.0-0.2); Basophils % 0.6 %; Eosinophils # 0.1 K/mcL (0.0-0.6); Eosinophils % 0.6 %; Immature Granulocytes % 0.4 % (0-4); Lymphocytes # 1.9 K/mcL (0.6-4.6); Lymphocytes % 19.2 %; Mean Corpuscular HGB Conc 34.4 g/dL (31.6-35.5); Mean Corpuscular Hemoglobin 31.5 pg (28.0-33.3); Mean Corpuscular Volume 91.8 fL (83.0-100.0); Mean Platelet Volume 9.5 fL (9.4-12.4); Monocytes # 0.5 K/mcL (0.0-1.3); Monocytes % 5.2 %; Neutrophils # 7.4 K/mcL (1.6-8.9); Platelet Count 260 K/mcL (140-400); Red Blood Count 5.23 M/mcL (3.82-4.97); Red Cell Distribution Width 12.7 % (11.5-14.5)
[2017-10-12 09:13] LABS: Hemoglobin 16.5 g/dL (11.5-15.4)
[2017-10-12 09:31] LABS: BUN/Creatinine Ratio 20 (6-26); Blood Urea Nitrogen 12 mg/dL (6-20); Calcium 9.5 mg/dL (8.6-10.3); Carbon Dioxide 24 mEq/L (23-29); Chloride 104 mEq/L (98-107); Glucose 256 mg/dL (70-105); Osmolality,Calculated 289 (280-300); Potassium 4.2 mEq/L (3.5-5.1); Sodium 135 mEq/L (136-145); eGFR For African Americans > 60 (> 60); eGFR For Non-African Americans > 60 (> 60)
--- NOTE | 2017-10-12 09:58 | Internal Medicine Consult Note ---
Date of Encounter: 10/12/17 Time of Encounter: 09:20 - Assessment and Plan (1) ST elevation myocardial infarction (STEMI) of inferior wall Current Visit: Yes Status: Acute Assessment and plan: Management per cardiology recommendations. Continue dual antiplatelet therapy. Control blood pressure. Continue beta richard. (2) Diabetes mellitus type 2 in obese Current Visit: Yes Status: Chronic Assessment and plan: As patient did not tolerate metformin and has been on insulin before, she wishes to continue taking insulin at this time. Was the patient is not exactly sure what kind of insulin she was on she seems to remember it being a green pen which is likely Levemir. She is willing to continue taking this medication. As such, we recommend starting her on Levemir again. 10 units twice a day would be a good starting dose for her with her weight and blood sugars here. Will sent prescriptions to her pharmacy for this medication. She is advised to follow up with her primary care provider and get set up with a forest fire specialist supervisor to manage her blood sugars better. She now has Medicaid and should be able to get her prescriptions filled. Internal Medicine - CN: HPI - Data of Consult Patient: known to practice within the last 3 years Requesting Physician: Sona Post - Consult Narrative Reason for consult: Diabetes management History of present illness: Ms. Hernandez is a 46 year old female patient with a history of diabetes mellitus type 2 who was hospitalized here for acute ST elevation MS involving the inferior wall. She underwent left heart catheterization and underwent PCI to [facility]. She is now doing better and we have been asked to consult regarding diabetes management. Patient has not been taking any medications recently for her diabetes. She had previously been on metformin and developed abdominal pain and discomfort with it. She was then placed on another medication which caused symptoms of dysuria and recurrent yeast infections. She was then placed on insulin. However during that time her mother had been sick and she stopped taking care of her diabetes. Also, she did not have health insurance and was unable to afford insulin. She denies any numbness and tingling in her upper and lower extremities. She had her vision checked one year back. She does have a glucometer at home but has not been checking her blood sugars recently. In the hospital, her blood sugars have been managed with sliding scale insulin coverage. Her blood sugars initially were in the 300s. They have been in between 180 and 250 since yesterday. A1c is currently pending. Past Med Surg Social Fam HX - Past Medical History Attestation: Yes The following information was validated with the patient. Source: patient Medical history: coronary artery disease, diabetes, myocardial infarction Psychiatric history: no psych history - Past Surgical History Surgical History: angioplasty/stent - Social History Smoking Status: Current every day smoker Packs per day: 1.5 Alcohol use: none Drug use: none - Family History Mother Living Status: Still Living Hx Family Respiratory Disorders: Yes Father Living Status: Hx Family Cancer: Yes All systems: reviewed and no additional remarkable complaints except as stated - Constitutional Constitutional: as per HPI - Cardiovascular Cardiovascular ROS IM: no chest pain, no dyspnea, no dyspnea on exertion, no edema - Respiratory Respiratory: no dyspnea, no wheezing, no pain on inspiration, no chest congestion - Gastrointestinal Gastrointestinal: no abdominal pain, no nausea, no vomiting - Neurological Neurological ROS: no focal weakness, no numbness, no paresthesias, no restless legs - Endocrine Endocrine IM: polyuria, no fatigue, no flushing, no polyphagia Internal Medicine - CN: Meds Aspirin 81 mg PO DAILY #30 tab.chew 10/12/17 [Rx] Atorvastatin [Lipitor] 40 mg PO HS #30 tablet 10/12/17 [Rx] Metoprolol [Lopressor] 25 mg PO BID #60 tablet 10/12/17 [Rx] Ticagrelor [Brilinta] 90 mg PO BID #60 tablet 10/12/17 [Rx] 3 Allergy/AdvReac Type Severity Reaction Status Date / Time No Known Allergies Allergy Verified 10/10/17 12:15 Internal Medicine - CN: Exam - Constitutional Vitals: Temp Pulse Resp BP Pulse Ox 98.3 F 84 19 119/70 97 10/12/17 08:16 10/12/17 08:18 10/12/17 08:18 10/12/17 08:18 10/12/17 08:18 General appearance IM: Present: cooperative, A&O X 3, obese, answers questions appropriately - Eye Eye exam: Present: EOMI, PERRL - Respiratory Respiratory exam: Present: CTAB. Absent: accessory muscle use, respiratory distress, rhonchi, wheezes - Cardiovascular Cardiovascular exam IM: Present: RRR, +S1, +S2. Absent: irregular rhythm, systolic murmur, tachycardia - GI/Abdominal GI/Abdominal exam IM: Present: normal bowel sounds, soft. Absent: tenderness - Neurological Exam Neurological exam: Present: alert, CN II-XII intact, oriented X3, no focal deficits, strengths equal and symetr throughout - Psychiatric Psychiatric exam: Present: normal affect, normal mood - Skin Skin exam IM: Present: dry, intact Internal Medicine - CN: Reslt - Labs CBC & Chem 7: 10/12/17 08:31 10/12/17 08:31 Labs: Short CBC 10/12/17 Range/Units 08:31 WBC 10.0 (4.3-11.1) K/mcL Hgb 16.5 H D (11.5-15.4) g/dL Hct 48.0 H (35.3-44.9) % Plt Count 260 (140-400) K/mcL Neutrophils # 7.4 (1.6-8.9) K/mcL BMP 10/12/17 08:31 Sodium 135 L Potassium 4.2 Chloride 104 Carbon Dioxide 24 BUN 12 Creatinine 0.61 Glucose 256 H Calcium 9.5 - ABG Interpretation ABG results: PT/INR, D-dimer PT 9.8 Seconds (9.4-12.1) 10/10/17 08:17 Consult Discharge Plan - Plan Referrals: NONE,PCP [Primary Care Provider] - Prescriptions: Aspirin 81 mg PO DAILY #30 tab.chew Atorvastatin [Lipitor] 40 mg PO HS #30 tablet Metoprolol [Lopressor] 25 mg PO BID #60 tablet Ticagrelor [Brilinta] 90 mg PO BID #60 tablet
[2017-10-12 10:40] LABS: Estimated Average Glucose 226 mg/dl; Hemoglobin A1C 9.5 %
--- NOTE | 2017-10-13 00:06 | Electrocardiograph Report ---
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
--- NOTE | 2017-10-13 00:06 | Electrocardiograph Report ---
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
--- NOTE | 2017-10-13 19:14 | Electrocardiograph Report ---
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
== END 2017-10-12 13:06 | disposition home or self-care (01) | DRG 174 ==
LOC: EMEROO 08:11 → ICNU 08:43
PROVIDERS: ADMIT Internal Medicine Cardiovascular Disease; ATTEND Internal Medicine Cardiovascular Disease

== ENCOUNTER 2019-04-07 23:41 | Inpatient (IN) ==
[2019-04-08] MEDS ORDERED: Aspirin 81 MG TAB.CHEW PO ONE (00:04)
[2019-04-08] MEDS: Nitroglycerin 0.4 MG TAB.SUBL SL PRN ×2 (00:23→00:30)
[2019-04-08] MEDS ORDERED: *HR* Heparin 5,000 UNIT/ML VIAL IVP ONE (00:32)
[2019-04-08] MEDS ORDERED: *HR* Heparin 5,000 UNIT/ML VIAL IVP PRN ×2 (00:32)
[2019-04-08] MEDS ORDERED: Tirofiban 0.05 MG/1 ML (BOLUS FROM BAG) IV ONE (00:32)
--- NOTE | 2019-04-08 00:32 | Emergency Department Note ---
Disposition Clinical Impression: Chest pain Qualifiers: Chest pain type: unspecified Qualified Code(s): R07.9 - Chest pain, unspecified Disposition: Admitted As Inpatient Condition: Fair Time of Disposition: 01:51 General Adult HPI - General Chief complaint: ED Chest Pain Stated complaint: chest pain, back pain, chest tightness Time Seen by Provider: 04/07/19 23:55 Source: patient Mode of arrival: ambulatory Limitations: no limitations Nursing Notes Reviewed: Yes Vital Signs Reviewed: Yes - History of Present Illness HPI Narrative: Patient is a 48 showed female with past medical history of 1 cardiac stent placed in September 2017 presenting to the ED for evaluation of chest pain has been going on for the past 3 days that is substernal radiating into her mid back and both arms she describes as a pressure-like worse with exertion associated with diaphoresis and dyspnea. Also has a history of diabetes, hypertension and high cholesterol. Pain Scale: 7 - Related Data Home Medications Medication Instructions Recorded Confirmed Tylenol 05/24/18 Previous Rx's Medication Instructions Recorded Aspirin 81 mg PO DAILY #30 tab.chew 10/12/17 Atorvastatin [Lipitor] 40 mg PO HS #30 tablet 10/12/17 Insulin DETEMIR [Levemir Flextouch] 10 unit SQ BID #10 mls 10/12/17 Metoprolol [Lopressor] 25 mg PO BID #60 tablet 10/12/17 Ticagrelor [Brilinta] 90 mg PO BID #60 tablet 10/12/17 Allergies Allergy/AdvReac Type Severity Reaction Status Date / Time No Known Allergies Allergy Verified 04/07/19 23:53 All systems ED: reviewed and negative except as stated. Review of Systems: As Per HPI Constitutional: Denies: fever, chills Cardiovascular: Reports: chest pain, dyspnea on exertion. Denies: palpitations, edema, syncope Past Medical History - Past Medical History Medical history: Reports: coronary artery disease, diabetes, hyperlipidemia, hypertension, myocardial infarction Surgical history: Reports: angioplasty/stent Psychiatric history: Reports: no psych history - Social History Smoking Status: Current every day smoker Smokeless Tobacco Status: No Alcohol use: Reports: none Drug use: Reports: none Physical Exam - General Limitations: no limitations General appearance: alert Course Course Narrative: Patient presented initially with concerning EKG changes Dr. Britt was called discussed that these are not exactly STEMI criteria. She was started on [place] heparin as well as aspirin - Reevaluation(s) Reevaluation #1: Dr. Britt notified of EKG changes not meeting STEMI alert criteria with changes in inferior lead with no recipricol changes. Recommended heparin, Brillinta, and aspirin with admission for further evaluation. Time: 00:35 Reevaluation #2: Patient troponin elevated at 0.1. Dr. Britt paged for reassurance. Agreed to continue with current plan. Repeat EKG was improved. Time: 01:14 Vital Signs Temperature 98.9 F 04/07/19 23:53 Pulse Rate 86 04/07/19 23:53 Respiratory Rate 20 04/07/19 23:53 Blood Pressure 141/84 04/07/19 23:53 O2 Sat by Pulse Oximetry 97 04/07/19 23:53 Temperature 98.9 F 04/07/19 23:53 Pulse Rate 88 04/08/19 00:32 Respiratory Rate 18 04/08/19 00:32 Blood Pressure 132/75 04/08/19 00:32 O2 Sat by Pulse Oximetry 100 04/08/19 05:38 Oxygen Delivery Oxygen Delivery Room Air Medical Decision Making - Medical Records Medical records reviewed: Yes I reviewed the patient's medical records. - Lab Data Lab results reviewed: Yes I reviewed the patient's lab results. Result diagrams: 04/08/19 00:13 04/08/19 00:13 Lab Results 04/08/19 04/08/19 04/08/19 Range/Units 00:13 00:13 00:13 WBC 12.3 H (4.3-11.1) K/mcL RBC 5.25 H (3.82-4.97) M/mcL Hgb 17.0 H (11.5-15.4) g/dL Hct 48.0 H (35.3-44.9) % MCV 91.4 (83.0-100.0) fL MCH 32.4 (28.0-33.3) pg MCHC 35.4 (31.6-35.5) g/dL RDW 12.8 (11.5-14.5) % Plt Count 255 (140-400) K/mcL MPV 9.1 L (9.4-12.4) fL Immature Gran % 0.2 (0-4) % Seg Neutrophils % 69.5 % Lymphocytes % 23.0 % Monocytes % 5.8 % Eosinophils % 0.8 % Basophils % 0.7 % Neutrophils # 8.5 (1.6-8.9) K/mcL Lymphocytes # 2.8 (0.6-4.6) K/mcL Monocytes # 0.7 (0.0-1.3) K/mcL Eosinophils # 0.1 (0.0-0.6) K/mcL Basophils # 0.1 (0.0-0.2) K/mcL PT 10.0 (9.4-12.1) Seconds INR 0.9 Heparin Anti-Xa, Unfract 0.03 L (0.30-0.70) IU/mL Sodium 133 L (136-145) mEq/L Potassium 3.9 (3.5-5.1) mEq/L Chloride 100 (98-107) mEq/L Carbon Dioxide 22 L (23-29) mEq/L BUN 15 (6-20) mg/dL Creatinine 0.70 (0.60-1.20) mg/dL Est GFR ( Amer) > 60 (> 60) Est GFR (Non-Af Amer) > 60 (> 60) BUN/Creatinine Ratio 21 (6-26) Glucose 337 H (70-105) mg/dL Calculated Osmolality 290 (280-300) Calcium 9.8 (8.6-10.3) mg/dL Troponin I 0.16 H* (< 0.04) ng/mL - Radiology Data Radiology results reviewed: Yes I reviewed the patient's radiology results. Chest X-Ray 04/08/19 00:04 IMPRESSION: No acute findings in the chest. D/ / Campbell Delgado MD / Campbell Delgado MD Interpreting Provider: Campbell Delgado MD - EKG Data EKG #1 EKG attestation: Yes I reviewed and interpreted this EKG. EKG results narrative: EKG done at 1:13 shows sinus rhythm rate [address] bpm[address] Improvement in the ST elevation in the inferior leads COMPLETELY resolved. EKG #2 EKG attestation: Yes I reviewed and interpreted this EKG. EKG results narrative: EKG done at 1:13 shows sinus rhythm rate [address] bpm. Improvement in the ST elevation in the inferior leads COMPLETELY resolved. EKG #3 EKG attestation: Yes I reviewed and interpreted this EKG. EKG results narrative: EKG done at 1:13 shows sinus rhythm rate [address] b[address] Improvement in the ST elevation in the inferior leads COMPLETELY resolved.
[2019-04-08] MEDS ORDERED: *HR* FentaNYL (PF) 100 MCG/2 ML VIAL IVP ONE (00:34)
[2019-04-08 00:35] LABS: Basophils # 0.1 K/mcL (0.0-0.2); Basophils % 0.7 %; Eosinophils # 0.1 K/mcL (0.0-0.6); Eosinophils % 0.8 %; Immature Granulocytes % 0.2 % (0-4); Lymphocytes # 2.8 K/mcL (0.6-4.6); Mean Corpuscular HGB Conc 35.4 g/dL (31.6-35.5); Mean Corpuscular Hemoglobin 32.4 pg (28.0-33.3); Mean Corpuscular Volume 91.4 fL (83.0-100.0); Mean Platelet Volume 9.1 fL (9.4-12.4); Monocytes # 0.7 K/mcL (0.0-1.3); Monocytes % 5.8 %; Neutrophils # 8.5 K/mcL (1.6-8.9); Platelet Count 255 K/mcL (140-400); Red Blood Count 5.25 M/mcL (3.82-4.97); Red Cell Distribution Width 12.8 % (11.5-14.5); Segmented Neutrophils % 69.5 %; White Blood Count 12.3 K/mcL (4.3-11.1)
[2019-04-08] MEDS ORDERED: *HR* Ticagrelor 90 MG TABLET PO ONE (00:42)
[2019-04-08] MEDS ORDERED: Heparin 25,000 UNIT/250 ML D5W 25,000 UNIT/250 ML IV.SOLN IVC SCH (00:45)
[2019-04-08 00:57] LABS: BUN/Creatinine Ratio 21 (6-26); Blood Urea Nitrogen 15 mg/dL (6-20); Calcium 9.8 mg/dL (8.6-10.3); Carbon Dioxide 22 mEq/L (23-29); Chloride 100 mEq/L (98-107); Glucose 337 mg/dL (70-105); Osmolality,Calculated 290 (280-300); Potassium 3.9 mEq/L (3.5-5.1); Sodium 133 mEq/L (136-145); eGFR For African Americans > 60 (> 60); eGFR For Non-African Americans > 60 (> 60)
[2019-04-08 01:06] LABS: Troponin I 0.16 ng/mL (< 0.04)
[2019-04-08 01:24] LABS: Heparin anti-factor XA UFH 0.03 IU/mL (0.30-0.70); INR 0.9
[2019-04-08] MEDS ORDERED: Ondansetron 4 MG/2 ML VIAL IVP PRN (05:52)
[2019-04-08] MEDS ORDERED: Naloxone 0.4 MG/ML INJ IVP PRN (07:44)
[2019-04-08] MEDS ORDERED: *HR* Promethazine 25 MG/ML VIAL IVP PRN (07:44)
[2019-04-08] MEDS ORDERED: Ondansetron ODT 4 MG TAB.RAPDIS SL PRN (07:44)
--- NOTE | 2019-04-08 08:11 | Cardiology Consult Note ---
<Mile Nino Faisal - Last Filed: 04/08/19 09:13> Date of Encounter: 04/08/19 Time of Encounter: 07:00 Assessment and Plan (1) NSTEMI (non-ST elevated myocardial infarction) Current Visit: Yes Status: Acute Patient presented with typical chest pain symptoms concerning for ACS Troponin 0.1, 0.75. Initial ECG did show mild inferior ST elevations, reviewed by Dr. Britt and did not meet STEMI criteria. Given Brilinta 180 mg and ASA 324 mg in ED. Patient is chest pain free upon exam. Continue to trend troponin. Continue heparin gtt per ACS protocol, asa, statin, and BB. Check TTE. Cardiac rehab. Recommend LHC with possible PCI--A/R/B discussed. Symptoms are currently controlled on medical therapy, will plan for LHC on Wednesday. Will further discuss and review with Dr. Garcia. (2) CAD (coronary artery disease) Current Visit: Yes Status: Acute Plan as above. Hx of STEMI s/p PCI with MARITZA to RCA 09/2017 Asa, statin, BB. Qualifiers: Coronary Disease-Associated Artery/Lesion type: [place] artery [place] vs. transplanted heart: [place] heart Associated angina: with unstable angina Qualified Code(s): I25.110 - Atherosclerotic heart disease of [place] coronary artery with unstable angina pectoris (3) Smoker Current Visit: No Status: Chronic Smoking cessation counseling provided. Discussion w patient/family: The assessment and plan as outlined above was discussed with the patient and/or family members who expressed understanding and agreement. All questions were answered. Thank you for involving us in the care of your patient. Please call with any questions. The patient will be discussed and reviewed with Dr. Garcia; changes to be made accordingly. History of Present Illness Consult date: 04/08/19 Requesting physician: Jhony Boss Consult reason: NSTEMI Chief complaint: chest pain History of present illness: Ms. Hernandez is a 48 year old female with PMHx significant of CAD s/p PCI (STEMI 09/2017), HTN, HLD, DMII, and tobacco dependency who presented to the ED with complaints of chest pain. She reports symptoms started 3 days ago and began shortly after push mowing the lawn. Initially, described mid scapular discomfort however pain then radiated down left arm. She initially thought she had pulled a muscle in her back. Yesterday, she developed midsternal chest heaviness with radiation to bilateral arms associated with diaphoresis which prompted ED evaluation. She notes that symptoms are similar to prior AL in 2018. Of note, she stopped taking her Brilinta 2 weeks ago d/t cost--however she had been on for 1 year s/p MARITZA. Initial ECG demonstrated mild ST elevations, did not meet STEMI criteria; ECGs reviewed with Dr. Britt in ED. Prior CV testing: TTE 10/10/18: LVEF 55%, mild LVDD, mildly dilate LV, mild MR LHC 10/10/18: severe 1vCAD s/p PTCA/MARITZA in the mRCA; existing non-obstructive CAD 50% OM, 25% dRCA Past Med Surg Social Fam HX - Past Medical History Attestation: Yes The following information was validated with the patient. Source: patient Medical history: coronary artery disease, diabetes, hyperlipidemia, hypertension, myocardial infarction Additional medical history: hx of pancreatitis Psychiatric history: no psych history - Past Surgical History Surgical History: angioplasty/stent Additional surgical history: cardiac cath w/1 stent - Social History Smoking Status: Current every day smoker Packs per day: 1 Smokeless Tobacco Status: No Alcohol use: none Drug use: none - Family History Mother Living Status: Still Living Hx Family Respiratory Disorders: Yes Father Living Status: Hx Family Cancer: Yes Medications and Allergies Aspirin 81 mg PO DAILY #30 tab.chew 10/12/17 [Rx] Atorvastatin [Lipitor] 40 mg PO HS #30 tablet 10/12/17 [Rx] Insulin DETEMIR [Levemir Flextouch] 10 unit SQ BID #10 mls 10/12/17 [Rx] Metoprolol [Lopressor] 25 mg PO BID #60 tablet 10/12/17 [Rx] Ticagrelor [Brilinta] 90 mg PO BID #60 tablet 10/12/17 [Rx] Tylenol 05/24/18 [History] Allergy/AdvReac Type Severity Reaction Status Date / Time No Known Allergies Allergy Verified 04/07/19 23:53 All Systems Review: The remainder of the systems were reviewed and are negative - Cardiovascular Cardiovascular: as per HPI Physical Examination Vital Signs, Last 4 Hours Pulse Ox 04/08/19 05:38 100 General: Conversant, No Apparent Distress HEENT: Atraumatic, Normocephaly, Mucus Membranes Moist Neck: No JVD, Normal carotid pulses Cardiac: Reg Rate and Rhythm, Normal S1 and S2, No Murmur Lungs: Normal Breath Sounds, No Wheeze, Rales, Rhonchi Neuro: Alert and responsive, No focal deficits noted Abdomen: Soft, Non-Tender Skin: No rashes noted on visualized skin Musculoskeletal: No Chest Wall Tenderness Extremities: No Clubbing, No Cyanosis, No Edema, Normal Pulses Results 04/08/19 00:13 04/08/19 00:13 Lab Results 04/08/19 04/08/19 04/08/19 00:13 00:13 00:13 WBC 12.3 H Hgb 17.0 H Hct 48.0 H Plt Count 255 INR 0.9 Sodium 133 L Potassium 3.9 Chloride 100 Carbon Dioxide 22 L BUN 15 Creatinine 0.70 Glucose 337 H Calcium 9.8 Troponin I 0.16 H* 04/08/19 06:36 WBC Hgb Hct Plt Count INR Sodium Potassium Chloride Carbon Dioxide BUN Creatinine Glucose Calcium Troponin I 0.75 H* Active Medications Atorvastatin Calcium (Lipitor) 40 mg PO HS BRISA Stop: 10/08/19 21:01 Dextrose/Water (Dextrose 50% (Syg)) 25 ml IVP AD PRN PRN Reason: Hypoglycemia Stop: 10/08/19 09:06 Glucagon (Glucagen) 1 mg IM ONCE PRN PRN Reason: Hypoglycemia Stop: 10/08/19 09:06 Glucose (Gluctose) 15 gm PO ONCE PRN PRN Reason: Hypoglycemia Stop: 10/08/19 09:06 Glucose (Gluctose) 30 gm PO ONCE PRN PRN Reason: Hypoglycemia Stop: 10/08/19 09:06 Heparin Sodium (Porcine) (Heparin) 4,000 unit IVP Q6HR PRN PRN Reason: SEE COMMENTS Stop: 10/08/19 00:33 Heparin Sodium (Porcine) (Heparin) 2,000 unit IVP Q6H PRN PRN Reason: SEE COMMENTS Stop: 10/08/19 00:33 Last Admin: 04/08/19 07:45 Dose: 2,000 unit Documented by: Heparin Sodium/Dextrose (Heparin 25,000 Unit/250 Ml D5w) 25,000 unit in 250 mls @ 9.954 mls/hr IVC .Q24H BRISA; Protocol Stop: 10/08/19 00:46 Last Titration: 04/08/19 07:33 Dose: 12.8 unit/kg/hr, 11.8 mls/hr Documented by: Dextrose (Dextrose 5%) 1,000 mls @ 100 mls/hr IVC .Q10H PRN PRN Reason: HYPOGLYCEMIA Stop: 10/08/19 09:06 Insulin Human Lispro (Humalog) 0 units SQ Q6HR BRISA; Protocol Stop: 10/08/19 12:01 Metoprolol Tartrate (Lopressor) 25 mg PO BID [facility] Stop: 10/08/19 09:16 Naloxone HCl (Narcan) 0.4 mg IVP Q2MPRN PRN PRN Reason: SEE COMMENTS Stop: 10/08/19 07:45 Non-Formulary Medication (Insulin Detemir [Levemir Flextouch]) 10 unit SQ BID [facility] Stop: 10/08/19 09:05 Ondansetron HCl (Zofran) 4 mg IVP Q6H PRN; Protocol PRN Reason: Nausea And Vomiting Stop: 10/08/19 05:53 Last Admin: 04/08/19 06:07 Dose: 4 mg Documented by: Ondansetron HCl (Zofran Odt) 4 mg SL Q8HR PRN PRN Reason: Nausea And Vomiting Stop: 10/08/19 07:45 Promethazine HCl (Phenergan) 12.5 mg IVP Q6HR PRN PRN Reason: Nausea And Vomiting Stop: 10/08/19 07:45 Ticagrelor (Brilinta) 90 mg PO BID [facility] Stop: 10/08/19 21:01 - Imaging and Cardiology Echo: report reviewed Cardiac cath: report reviewed - EKG Interpretation EKG results cardiology: personally reviewed Consult Discharge Plan - Plan Referrals: NONE,PCP [Primary Care Provider] - HAS-BLED Score - Score Medication usage predisposing to bleeding: Antiplatelet agents, NSAIDs, Anticoagulants Score: 1 <Stacy Garcia - Last Filed: 04/08/19 11:09> Date of Encounter: 04/08/19 - Attending Attestation I examined this patient and my medical decision-making was reviewed with the BOTTOM CEMENTER. I agree with the documented findings, disposition and treatment plan as described. Ms. Hernandez presents with chest discomfort, elevated troponin and ECG changes consistent with NSTEMI. Known history of CAD with prior STEMI and PCI 09/2017. Discussed options with patient. Recommend [facility]. R/B/A of [facility] were discussed with the patient in detail. The patient expressed understanding and has decided to proceed. Patient is full code. No upcoming elective procedures. Normal renal function. Assessment and Plan Discussion w patient/family: The assessment and plan as outlined above was discussed with the patient and/or family members who expressed understanding and agreement. All questions were answered. Thank you for involving us in the care of your patient. Please call with any questions. History of Present Illness History of present illness: Ms. Hernandez is a 48 year old female All Systems Review: The remainder of the systems were reviewed and are negative Physical Examination Vital Signs, Last 4 Hours Temp Pulse Resp BP Pulse Ox 04/08/19 08:00 98.4 F 77 16 118/77 97 Results 04/08/19 00:13 04/08/19 00:13 Lab Results 04/08/19 04/08/19 04/08/19 00:13 00:13 00:13 WBC 12.3 H Hgb 17.0 H Hct 48.0 H Plt Count 255 INR 0.9 Sodium 133 L Potassium 3.9 Chloride 100 Carbon Dioxide 22 L BUN 15 Creatinine 0.70 Glucose 337 H Calcium 9.8 Troponin I 0.16 H* 04/08/19 06:36 WBC Hgb Hct Plt Count INR Sodium Potassium Chloride Carbon Dioxide BUN Creatinine Glucose Calcium Troponin I 0.75 H*
--- NOTE | 2019-04-08 08:38 | Emergency Department Note ---
Disposition Clinical Impression: Chest pain Qualifiers: Chest pain type: unspecified Qualified Code(s): R07.9 - Chest pain, unspecified Disposition: Admitted As Inpatient Time of Disposition: 01:58 General Adult HPI - General Chief complaint: ED Chest Pain Stated complaint: chest pain, back pain, chest tightness Time Seen by Provider: 04/07/19 23:55 Source: patient Mode of arrival: ambulatory Limitations: no limitations Nursing Notes Reviewed: Yes Vital Signs Reviewed: Yes - History of Present Illness Pain Scale: 0 - Related Data Previous Rx's Medication Instructions Recorded Aspirin 81 mg PO DAILY #30 tab.chew 10/12/17 Atorvastatin [Lipitor] 80 mg PO HS #60 tablet 04/09/19 Clopidogrel [Plavix] 75 mg PO DAILY #30 tablet 04/09/19 Metoprolol [Lopressor] 25 mg PO BID #60 tablet 04/09/19 Allergies Allergy/AdvReac Type Severity Reaction Status Date / Time No Known Allergies Allergy Verified 04/07/19 23:53 Constitutional: Denies: fever, chills Cardiovascular: Reports: chest pain, dyspnea on exertion. Denies: palpitations, edema, syncope Past Medical History - Past Medical History Medical history: Reports: coronary artery disease, diabetes, hyperlipidemia, hypertension, myocardial infarction Surgical history: Reports: angioplasty/stent Psychiatric history: Reports: no psych history - Social History Smoking Status: Current every day smoker Smokeless Tobacco Status: No Alcohol use: Reports: none Drug use: Reports: none Physical Exam - General Limitations: no limitations General appearance: alert Course Vital Signs Temperature 98.9 F 04/07/19 23:53 Pulse Rate 86 04/07/19 23:53 Respiratory Rate 20 04/07/19 23:53 Blood Pressure 141/84 04/07/19 23:53 O2 Sat by Pulse Oximetry 97 04/07/19 23:53 Temperature 98.1 F 04/09/19 11:39 Pulse Rate 61 04/09/19 11:39 Respiratory Rate 16 04/09/19 11:39 Blood Pressure 109/71 04/09/19 11:39 O2 Sat by Pulse Oximetry 97 04/09/19 11:39 Oxygen Delivery Oxygen Delivery Room Air Medical Decision Making - Medical Records Medical records reviewed: Yes I reviewed the patient's medical records. - Lab Data Lab results reviewed: Yes I reviewed the patient's lab results. Result diagrams: 04/09/19 05:58 04/09/19 05:58 Lab Results 04/08/19 04/08/19 04/08/19 Range/Units 00:13 00:13 00:13 WBC 12.3 H (4.3-11.1) K/mcL RBC 5.25 H (3.82-4.97) M/mcL Hgb 17.0 H (11.5-15.4) g/dL Hct 48.0 H (35.3-44.9) % MCV 91.4 (83.0-100.0) fL MCH 32.4 (28.0-33.3) pg MCHC 35.4 (31.6-35.5) g/dL RDW 12.8 (11.5-14.5) % Plt Count 255 (140-400) K/mcL MPV 9.1 L (9.4-12.4) fL Immature Gran % 0.2 (0-4) % Seg Neutrophils % 69.5 % Lymphocytes % 23.0 % Monocytes % 5.8 % Eosinophils % 0.8 % Basophils % 0.7 % Neutrophils # 8.5 (1.6-8.9) K/mcL Lymphocytes # 2.8 (0.6-4.6) K/mcL Monocytes # 0.7 (0.0-1.3) K/mcL Eosinophils # 0.1 (0.0-0.6) K/mcL Basophils # 0.1 (0.0-0.2) K/mcL PT 10.0 (9.4-12.1) Seconds INR 0.9 Heparin Anti-Xa, Unfract 0.03 L (0.30-0.70) IU/mL Sodium 133 L (136-145) mEq/L Potassium 3.9 (3.5-5.1) mEq/L Chloride 100 (98-107) mEq/L Carbon Dioxide 22 L (23-29) mEq/L BUN 15 (6-20) mg/dL Creatinine 0.70 (0.60-1.20) mg/dL Est GFR ( Amer) > 60 (> 60) Est GFR (Non-Af Amer) > 60 (> 60) BUN/Creatinine Ratio 21 (6-26) Glucose 337 H (70-105) mg/dL POC Glucose (70-99) mg/dL Est Mean Plasma Glucose mg/dl Hemoglobin A1c ( - 5.6) % Calculated Osmolality 290 (280-300) Calcium 9.8 (8.6-10.3) mg/dL Troponin I 0.16 H* (< 0.04) ng/mL Triglycerides (< 150) mg/dL Cholesterol (< 200) mg/dL LDL Cholesterol, Calc (0-99) mg/dL VLDL Cholesterol, Calc (< 31) mg/dL HDL Cholesterol (40-59) mg/dL Cholesterol/HDL Ratio (0-4.9) 04/08/19 04/08/19 04/08/19 Range/Units 06:36 06:36 11:30 WBC (4.3-11.1) K/mcL RBC (3.82-4.97) M/mcL Hgb (11.5-15.4) g/dL Hct (35.3-44.9) % MCV (83.0-100.0) fL MCH (28.0-33.3) pg MCHC (31.6-35.5) g/dL RDW (11.5-14.5) % Plt Count (140-400) K/mcL MPV (9.4-12.4) fL Immature Gran % (0-4) % Seg Neutrophils % % Lymphocytes % % Monocytes % % Eosinophils % % Basophils % % Neutrophils # (1.6-8.9) K/mcL Lymphocytes # (0.6-4.6) K/mcL Monocytes # (0.0-1.3) K/mcL Eosinophils # (0.0-0.6) K/mcL Basophils # (0.0-0.2) K/mcL PT (9.4-12.1) Seconds INR Heparin Anti-Xa, Unfract 0.27 L (0.30-0.70) IU/mL Sodium (136-145) mEq/L Potassium (3.5-5.1) mEq/L Chloride (98-107) mEq/L Carbon Dioxide (23-29) mEq/L BUN (6-20) mg/dL Creatinine (0.60-1.20) mg/dL Est GFR ( Amer) (> 60) Est GFR (Non-Af Amer) (> 60) BUN/Creatinine Ratio (6-26) Glucose (70-105) mg/dL POC Glucose 238 H (70-99) mg/dL Est Mean Plasma Glucose mg/dl Hemoglobin A1c ( - 5.6) % Calculated Osmolality (280-300) Calcium (8.6-10.3) mg/dL Troponin I 0.75 H* (< 0.04) ng/mL Triglycerides (< 150) mg/dL Cholesterol (< 200) mg/dL LDL Cholesterol, Calc (0-99) mg/dL VLDL Cholesterol, Calc (< 31) mg/dL HDL Cholesterol (40-59) mg/dL Cholesterol/HDL Ratio (0-4.9) 04/08/19 04/08/19 04/08/19 Range/Units 12:00 14:30 15:24 WBC (4.3-11.1) K/mcL RBC (3.82-4.97) M/mcL Hgb (11.5-15.4) g/dL Hct (35.3-44.9) % MCV (83.0-100.0) fL MCH (28.0-33.3) pg MCHC (31.6-35.5) g/dL RDW (11.5-14.5) % Plt Count (140-400) K/mcL MPV (9.4-12.4) fL Immature Gran % (0-4) % Seg Neutrophils % % Lymphocytes % % Monocytes % % Eosinophils % % Basophils % % Neutrophils # (1.6-8.9) K/mcL Lymphocytes # (0.6-4.6) K/mcL Monocytes # (0.0-1.3) K/mcL Eosinophils # (0.0-0.6) K/mcL Basophils # (0.0-0.2) K/mcL PT (9.4-12.1) Seconds INR Heparin Anti-Xa, Unfract (0.30-0.70) IU/mL Sodium (136-145) mEq/L Potassium (3.5-5.1) mEq/L Chloride (98-107) mEq/L Carbon Dioxide (23-29) mEq/L BUN (6-20) mg/dL Creatinine (0.60-1.20) mg/dL Est GFR ( Amer) (> 60) Est GFR (Non-Af Amer) (> 60) BUN/Creatinine Ratio (6-26) Glucose (70-105) mg/dL POC Glucose 261 H 296 H (70-99) mg/dL Est Mean Plasma Glucose mg/dl Hemoglobin A1c ( - 5.6) % Calculated Osmolality (280-300) Calcium (8.6-10.3) mg/dL Troponin I 0.72 H* (< 0.04) ng/mL Triglycerides (< 150) mg/dL Cholesterol (< 200) mg/dL LDL Cholesterol, Calc (0-99) mg/dL VLDL Cholesterol, Calc (< 31) mg/dL HDL Cholesterol (40-59) mg/dL Cholesterol/HDL Ratio (0-4.9) 04/08/19 04/09/19 04/09/19 Range/Units 20:15 05:58 05:58 WBC 10.1 (4.3-11.1) K/mcL RBC 5.06 H (3.82-4.97) M/mcL Hgb 16.3 H (11.5-15.4) g/dL Hct 46.6 H (35.3-44.9) % MCV 92.1 (83.0-100.0) fL MCH 32.2 (28.0-33.3) pg MCHC 35.0 (31.6-35.5) g/dL RDW 12.7 (11.5-14.5) % Plt Count 253 (140-400) K/mcL MPV 9.4 (9.4-12.4) fL Immature Gran % 0.2 (0-4) % Seg Neutrophils % 69.6 % Lymphocytes % 23.2 % Monocytes % 5.9 % Eosinophils % 0.6 % Basophils % 0.5 % Neutrophils # 7.1 (1.6-8.9) K/mcL Lymphocytes # 2.4 (0.6-4.6) K/mcL Monocytes # 0.6 (0.0-1.3) K/mcL Eosinophils # 0.1 (0.0-0.6) K/mcL Basophils # 0.1 (0.0-0.2) K/mcL PT (9.4-12.1) Seconds INR Heparin Anti-Xa, Unfract (0.30-0.70) IU/mL Sodium 135 L (136-145) mEq/L Potassium 4.5 (3.5-5.1) mEq/L Chloride 104 (98-107) mEq/L Carbon Dioxide 22 L (23-29) mEq/L BUN 12 (6-20) mg/dL Creatinine 0.65 (0.60-1.20) mg/dL Est GFR ( Amer) > 60 (> 60) Est GFR (Non-Af Amer) > 60 (> 60) BUN/Creatinine Ratio 18 (6-26) Glucose 244 H (70-105) mg/dL POC Glucose 157 H (70-99) mg/dL Est Mean Plasma Glucose mg/dl Hemoglobin A1c ( - 5.6) % Calculated Osmolality 288 (280-300) Calcium 9.1 (8.6-10.3) mg/dL Troponin I (< 0.04) ng/mL Triglycerides (< 150) mg/dL Cholesterol (< 200) mg/dL LDL Cholesterol, Calc (0-99) mg/dL VLDL Cholesterol, Calc (< 31) mg/dL HDL Cholesterol (40-59) mg/dL Cholesterol/HDL Ratio (0-4.9) 04/09/19 04/09/19 04/09/19 Range/Units 05:58 05:58 07:26 WBC (4.3-11.1) K/mcL RBC (3.82-4.97) M/mcL Hgb (11.5-15.4) g/dL Hct (35.3-44.9) % MCV (83.0-100.0) fL MCH (28.0-33.3) pg MCHC (31.6-35.5) g/dL RDW (11.5-14.5) % Plt Count (140-400) K/mcL MPV (9.4-12.4) fL Immature Gran % (0-4) % Seg Neutrophils % % Lymphocytes % % Monocytes % % Eosinophils % % Basophils % % Neutrophils # (1.6-8.9) K/mcL Lymphocytes # (0.6-4.6) K/mcL Monocytes # (0.0-1.3) K/mcL Eosinophils # (0.0-0.6) K/mcL Basophils # (0.0-0.2) K/mcL PT (9.4-12.1) Seconds INR Heparin Anti-Xa, Unfract (0.30-0.70) IU/mL Sodium (136-145) mEq/L Potassium (3.5-5.1) mEq/L Chloride (98-107) mEq/L Carbon Dioxide (23-29) mEq/L BUN (6-20) mg/dL Creatinine (0.60-1.20) mg/dL Est GFR ( Amer) (> 60) Est GFR (Non-Af Amer) (> 60) BUN/Creatinine Ratio (6-26) Glucose (70-105) mg/dL POC Glucose 239 H (70-99) mg/dL Est Mean Plasma Glucose 258 mg/dl Hemoglobin A1c 10.6 H ( - 5.6) % Calculated Osmolality (280-300) Calcium (8.6-10.3) mg/dL Troponin I (< 0.04) ng/mL Triglycerides 370 H (< 150) mg/dL Cholesterol 223 H (< 200) mg/dL LDL Cholesterol, Calc 118 H (0-99) mg/dL VLDL Cholesterol, Calc 74 H (< 31) mg/dL HDL Cholesterol 31 L (40-59) mg/dL Cholesterol/HDL Ratio 7.2 H (0-4.9) 04/09/19 Range/Units 11:32 WBC (4.3-11.1) K/mcL RBC (3.82-4.97) M/mcL Hgb (11.5-15.4) g/dL Hct (35.3-44.9) % MCV (83.0-100.0) fL MCH (28.0-33.3) pg MCHC (31.6-35.5) g/dL RDW (11.5-14.5) % Plt Count (140-400) K/mcL MPV (9.4-12.4) fL Immature Gran % (0-4) % Seg Neutrophils % % Lymphocytes % % Monocytes % % Eosinophils % % Basophils % % Neutrophils # (1.6-8.9) K/mcL Lymphocytes # (0.6-4.6) K/mcL Monocytes # (0.0-1.3) K/mcL Eosinophils # (0.0-0.6) K/mcL Basophils # (0.0-0.2) K/mcL PT (9.4-12.1) Seconds INR Heparin Anti-Xa, Unfract (0.30-0.70) IU/mL Sodium (136-145) mEq/L Potassium (3.5-5.1) mEq/L Chloride (98-107) mEq/L Carbon Dioxide (23-29) mEq/L BUN (6-20) mg/dL Creatinine (0.60-1.20) mg/dL Est GFR ( Amer) (> 60) Est GFR (Non-Af Amer) (> 60) BUN/Creatinine Ratio (6-26) Glucose (70-105) mg/dL POC Glucose 299 H (70-99) mg/dL Est Mean Plasma Glucose mg/dl Hemoglobin A1c ( - 5.6) % Calculated Osmolality (280-300) Calcium (8.6-10.3) mg/dL Troponin I (< 0.04) ng/mL Triglycerides (< 150) mg/dL Cholesterol (< 200) mg/dL LDL Cholesterol, Calc (0-99) mg/dL VLDL Cholesterol, Calc (< 31) mg/dL HDL Cholesterol (40-59) mg/dL Cholesterol/HDL Ratio (0-4.9) - Radiology Data Radiology results reviewed: Yes I reviewed the patient's radiology results. Chest X-Ray 04/08/19 00:04 IMPRESSION: No acute findings in the chest. D/ / Campbell Delgado MD / Campbell Delgado MD Interpreting Provider: Campbell Delgado MD - EKG Data EKG #1 EKG attestation: Yes I reviewed and interpreted this EKG. Critical Care Time Critical Care Time: Yes Total Critical Care Time: 45 Attestation: Critical care performed: Time is exclusive of separately billable procedures. Time includes: direct patient care, patient reassessment, coordination of patient care, interpretation of data (laboratory data, radiology data, and respiratory data), review of patient's medical records, medical consultation and documentation of patient care. Procedures included in critical care time: Procedures excluded from critical care time: Attestation Statement - Attestation Attestation: ICiro MD, personally evaluated this patient and discussed their management with the resident physician. I reviewed the resident's note and agree with the documented findings, medical decision making, and plan of care. I reviewed the residents documentation and agree with the residents assessment and plan of care. I have personally had face to face time with the patient. I personally supervised and was present for the deleon/critical portions of the following procedures completed by the resident: EKG interpretation. 48-year-old female presents to the emergency department with a complaint of chest pain for the past 3 days but became worse today. The pain is been const ant. She describes it as a squeezing around her chest from her throat down to her xiphoid area. It radiates to the back and both arms. Some nausea and diaphoresis. Also shortness of breath. Patient does have history of coronary artery stent. On examination patient is a well-developed well-nourished female in no acute distress but does appear to be in some discomfort. She is alert and oriented 3. There is no cyanosis or diaphoresis. Chest is nontender to palpation. Breath sounds are clear and equal bilaterally. Heart regular rate and rhythm. Abdomen soft and nontender with normal bowel sounds. Labs reviewed. Troponin 0.16. Chest x-ray negative. EKG did show some mild ST elevations but did not meet STEMI criteria. The EKG was reviewed by the terminal operator, Dr. Britt. The hospitalist was consulted and accepted admission of the patient.
--- NOTE | 2019-04-08 08:52 | Internal Med History&Physical ---
Date of Encounter: 04/08/19 Time of Encounter: 08:45 Internal Medicine - H&P: HPI Chief complaint: chest pain Admitted From: Home Plans for Post Hospital Care: Home History of present illness: Ms. Hernandez is a 48 year old female with hx of CAD s/p RCA stent in 2018 and IDDM presents with chest pain. Patient's pain began 04/05 is left shoulder pain. No inciting injury that she knows of. Since then, pain has migrated to her chest and became a lot more severe. Substernal center of the chest and pressure-like sensation. Associated with electrical "sonar" like sensation going down both arms. Nonexertional. No shortness of breath. Similar sensation to her last heart attack so was concerning and came in. Patient has a hx of CAD s/p RCA stent in 2018. At that time, LAD had 50% stenosis but other vessels relatively free of disease. Of note, patient was previously on aspirin, Brillinta, metoprolol, and Lipitor up until 2 weeks ago and she ran out of her medications and did not refill her medications because of recently lapsing on her insurance. Says she was able to get a hold of [id number] aspirin and is taking this intermittently since then but other medications she has not taken it all. Past Med Surg Social Fam HX - Past Medical History Medical history: coronary artery disease, diabetes, hyperlipidemia, hypertension, myocardial infarction Additional medical history: hx of pancreatitis Psychiatric history: no psych history - Past Surgical History Surgical History: angioplasty/stent Additional surgical history: cardiac cath w/1 stent - Social History Smoking Status: Current every day smoker Packs per day: 1 Smokeless Tobacco Status: No Alcohol use: none Drug use: none - Family History Mother Living Status: Still Living Hx Family Respiratory Disorders: Yes Father Living Status: Hx Family Cancer: Yes Internal Medicine - H&P: Meds Aspirin 81 mg PO DAILY #30 tab.chew 10/12/17 [Rx] Atorvastatin [Lipitor] 40 mg PO HS #30 tablet 10/12/17 [Rx] Insulin DETEMIR [Levemir Flextouch] 10 unit SQ BID #10 mls 10/12/17 [Rx] Metoprolol [Lopressor] 25 mg PO BID #60 tablet 10/12/17 [Rx] Ticagrelor [Brilinta] 90 mg PO BID #60 tablet 10/12/17 [Rx] Tylenol 05/24/18 [History] Allergy/AdvReac Type Severity Reaction Status Date / Time No Known Allergies Allergy Verified 04/07/19 23:53 Review of systems: General: Fevers / Chills / Weight loss / Night sweats Eyes: Blurry Vision / Change in Vision HENT: Ear Pain / Ear Drainage / Rhinorrhea / Throat Pain / Lymphadenopathy Cardiovascular: Chest Pain / Palpatations / Orthopnea / FONSECA / Weight gain Lungs: Dyspnea / Wheezing / Cough / Sputum production / Pleurisy Abdomen: Abdomen pain / Abdominal distention / Nausea / Vomiting / Diarrhea / Const : Dysuria / Urinary Frequency / Urinary Urgency / Hematuria Extremities: LE edema / Ext pain / Ext erythema Skin: Rashes / Abrasions / Contusions Psych: Hallucinations / Anxiety / Depression Neuro: Weakness / Numbness / Tingling / Facial Droop / Dysphagia - Constitutional Vitals: Temp Pulse Resp BP Pulse Ox 98.4 F 77 16 118/77 97 04/08/19 08:00 04/08/19 08:00 04/08/19 08:00 04/08/19 08:00 04/08/19 08:00 Exam: General: Ill-appearing and in no acute distress HEENT: No erythema of posterior pharynx. No exudates. Lymphatics: No mandibular or cervical lymphadenopathy Cardiovascular: RRR. No murmurs. No chest wall tenderness. Lungs: Clear to auscelltation bilaterally. Regular chest rise. Abdomen: Non-tender. No rebound or gaurding. Nl bowel sounds. Extremities: No edema. 2+ pulses radial and pedal pulses Skin: No rahses, abrasions, or contusions. Nl cap refill. Psych: Nl attention. 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 5/5 strength. Sensation to light touch and pinprick i ntact. Internal Med - H&P Results - Labs CBC & Chem 7: 04/08/19 00:13 04/08/19 00:13 Labs: Short CBC 04/08/19 Range/Units 00:13 WBC 12.3 H (4.3-11.1) K/mcL Hgb 17.0 H (11.5-15.4) g/dL Hct 48.0 H (35.3-44.9) % Plt Count 255 (140-400) K/mcL Neutrophils # 8.5 (1.6-8.9) K/mcL BMP 04/08/19 00:13 Sodium 133 L Potassium 3.9 Chloride 100 Carbon Dioxide 22 L BUN 15 Creatinine 0.70 Glucose 337 H Calcium 9.8 Cardiac Enzymes 04/08/19 04/08/19 Range/Units 00:13 06:36 Troponin I 0.16 H* 0.75 H* (< 0.04) ng/mL - Impressions ITS Impressions Chest X-Ray 04/08/19 00:04 IMPRESSION: No acute findings in the chest. D/ / Campbell Delgado MD / Campbell Delgado MD Interpreting Provider: Campbell Delgado MD - Assessment and Plan (1) NSTEMI (non-ST elevated myocardial infarction) Current Visit: Yes Status: Acute Assessment and plan: Patient with hx of CAD s/p RCA stent in 2018 and IDDM presents with chest pain in the setting of recently being off of her cardiac medications, normal vitals on admission, unremarkable physical exam, trop elevation to .75, and EKG with initial concerns for STEMI but resolution of ANN on repeat EKGs -Initial concern for STEMI but EKG reviewed by cardiology and did not meet STEMI criteria -Regardless, patient does meet criteria for an NSTEMI given troponin elevation 0.75: Still had 50% stenosis of LAD during last so plaque rupture could be considered Given she has been off medications, in-stent thrombosis could be considered, however, less concerning this far out -Patient started on appropriate therapy on admission with heparin drip, aspirin, and Brilinta PLAN: - S/p ASA 324mg qd. ASA 81mg qd - Heparin ggt - Brillnta 90mg bid - Will add home metoprolol 25mg bid and Atorvastatin 40mg qd - Lipid panel - Trend trops - Cardiology consulting, will keep NPO in case of LHC (2) Diabetes mellitus type 2 in obese Current Visit: No Status: Chronic Assessment and plan: Blood sugar of 337 on admission. Has not been taking her medications because less of insurance. - Home detemir 10U bid - LDSS - HgA1c (3) Obesity (BMI 30.0-34.9) Current Visit: No Status: Chronic Assessment and plan: Complicates all aspects of care (4) Smoker Current Visit: No Status: Chronic Assessment and plan: Encourage cessation before discharge (5) Insurance coverage problems Current Visit: Yes Status: Acute Assessment and plan: Will have patient discuss this with social work before discharge
[2019-04-08] MEDS ORDERED: NON-FORMULARY MEDICATION 1 EACH EACH (Insulin Detemir [Levemir Flextouch] 10 UNIT) SQ SCH (09:04)
[2019-04-08] MEDS ORDERED: Dextrose Gel 15 GM/37.5 ML TUBE PO PRN ×2 (09:05)
[2019-04-08] MEDS ORDERED: *HR* Dextrose 50 % in Water (Syg) 50 ML SYRINGE IVP PRN (09:05)
[2019-04-08] MEDS ORDERED: D5% in Water 1,000 ML IVC PRN (09:05)
--- NOTE | 2019-04-08 10:19 | Event Note ---
Date of Encounter: 04/08/19 Time of Encounter: 10:00 - Cardiology Event Note Reviewed patient with Dr. Garcia. Given concerning ECG changes and troponin continues to uptrend, recommend C today. A/R/B discussed, she is agreeable to proceed. HAS-BLED Score - Score Medication usage predisposing to bleeding: Antiplatelet agents, NSAIDs, Anticoagulants Score: 1
[2019-04-08] MEDS: Insulin DETEMIR 100 UNIT/ML X5UNITS SQ SCH ×2 (11:31→21:06)
[2019-04-08] MEDS: Insulin LISPRO 300 UNITS/3 ML VIAL SQ SCH ×2 (11:32→16:46)
[2019-04-08] MEDS ORDERED: 0.9 % Sodium Chloride 1,000 ML ONE ×2 (11:58→12:13)
[2019-04-08] MEDS ORDERED: Verapamil 5 MG/2 ML VIAL ONE (11:58)
[2019-04-08] MEDS ORDERED: Iopamidol 125 ML INFUS..BTL ONE ×2 (11:58→12:48)
[2019-04-08] MEDS ORDERED: Nitroglycerin 1,000 MCG/10 ML VIAL IV ONE ×2 (11:58→12:42)
[2019-04-08] MEDS ORDERED: Heparin 1,000 UNITS/500 mL 500 ML ONE (11:58)
[2019-04-08] MEDS ORDERED: *HR* Heparin 10,000 UNIT/10 ML VIAL ONE (11:58)
--- NOTE | 2019-04-08 12:35 | Pre-Sedation Evaluation ---
Pre-sedation evaluation - Pre-sedation checklist Date of procedure: 04/08/19 Procedure: [facility] Recent Vitals: Last Vital Signs Temp 98.4 F 04/08/19 11:14 Pulse 77 04/08/19 11:14 Resp 16 04/08/19 11:14 BP 113/73 04/08/19 11:14 Pulse Ox 95 04/08/19 11:14 H&P (including ROS) documented in medical record: Yes Previous reaction to sedatives/anesthetics: No Dietary Status: NPO after Midnight Dentition: No loose teeth or bridges ASA Classification *see protocol: CLASS II-Mild systemic disease Plan of Care: Pt appropriate candidate for procedure/moderate/conscious sedation, Risks/benefits of procedure/sedation discussed w/ patient/family Cardiac Registry (Cardio Only) - Functional Capacity Functional Capacity: >=4 METS with symptoms - Clincal Frailty Scale Clinical Frailty Scale: Managing Well
[2019-04-08] MEDS ORDERED: *HR* FentaNYL (PF) 100 MCG/2 ML VIAL ONE (12:39)
[2019-04-08] MEDS ORDERED: *HR* Midazolam HCl 2 MG/2 ML VIAL ONE ×2 (12:39→12:47)
[2019-04-08] MEDS ORDERED: *HR* HYDROcodone/Acet 5/325 mg TABLET PO PRN (13:07)
[2019-04-08] MEDS ORDERED: Acetaminophen 325 MG TABLET PO PRN (13:07)
--- NOTE | 2019-04-08 13:16 | Event Note ---
Date of Encounter: 04/08/19 Time of Encounter: 13:15 - Cardiology Event Note PCI dRCA MARITZA x 1. Switch to plavix 2/ $ concerns. Patent mRCA stent and otherwise nonobstructive CAD.
--- NOTE | 2019-04-08 13:25 | Invasive Diagnostic Lab Proc ---
Name: Kaleb Hernandez Date of Study: 04/08/2019 Date: 1970 Ht: 65.0in Medical Record#: [id number] Age: 48 Wt: 202.83lb Gender: Female BSA: 1.99 Order #: [id number] BMI: 33.79 Physicians Procedure Physician: Georgi Britt MD, [facility] Referring MD: Referring MD: Staff Name Position Time In Sites, [facility] RT (R) Monitor 12:28 PM Meng Barriga RN Hack Driver 12:28 PM Sharona Paul RT (R) Scrub 12:28 PM Robel Russ RN Monitor 01:03 PM Indications Indication Non-Stemi Procedures Performed Procedure L HRT ARTERY/VENTRICLE ANGIO PRQ CARD MARITZA STENT W/ANGIO 1 VSL Pre-Procedure Checklist Informed consent is complete signed and on chart. H&P is on chart. ID band is on and ID verified with patient. Patient NPO for procedure The procedure was described for the patient and questions were answered. Blood Pressure: 113/73 ECG is on chart. Rhythm: NSR Plan of Care Patient will tolerate the procedure without complications. Adequate level of comfort will be maintained. Hemodynamics will remain stable Patient will recover from procedure without complications. Respiratory function will be maintained. Cardiac rhythm will remain stable. Patient temperature will be maintained. Patient and/or family have verbalized understanding of the procedure. Patient Education Chief Complaint/Reason for Test: Cardiac Cath Developmental Category: Adult (18-64 years) Developmentally Appropriate for Age: Yes Learning Barriers: None Education Needs: Procedure Education Method: Verbal Information Taught: Cardiac Cath Educational Evaluation: Able to repeat information Intravenous Access Time IV Size Location DC'd Fluid/Drip Rate Units RN 20g 1 1/4" Patent On Arrival Rt Wrist Yes Started with 20g 1 1/4" Rt Antecubital 0.9NaCl 50 ml/hr Meng Barriga RN Allergies No Known Allergies Vital Signs Time BP (mmHg) HR (bpm) O2 Sat. RR (bpm) LOC 12:29 PM / % 5 = Fully awake and oriented or at pre-proc level 12:29 PM / % 5 = Fully awake and oriented or at pre-proc level 12:33 PM 134 / 82 68 98 % 2 12:38 PM 123 / 70 70 99 % 11 12:43 PM 122 / 75 72 97 % 16 12:48 PM 122 / 69 70 96 % 12 12:53 PM 103 / 56 61 98 % 19 12:58 PM 120 / 67 71 90 % 21 01:03 PM 113 / 70 66 94 % 16 Procedural Medications Time Medication Dose Units Method Given By 12:29 PM Oxygen 2 L/min nasal cannula Meng Barriga RN 12:41 PM Versed 2 mg Intravenous Meng Barriga RN 12:41 PM Fentanyl 50 mcg Intravenous Meng Barriga RN 12:46 PM Lidocaine 2% 0.5 ml Subcutaneous Georgi Britt MD, FACC 12:50 PM Versed 1 mg Intravenous Meng Barriga RN 12:50 PM Fentanyl 25 mcg Intravenous Meng Barriga RN 12:50 PM Heparin 2000 units Nitroglycerin 200 mcg Verapamil 2.5 mg Intraarterial Georgi Britt MD, FACC 01:03 PM Heparin 2000 units Intravenous Meng Barriga RN 01:08 PM Plavix 300 mg Orally Meng Barriga RN Dejuan Score Preprocedure Postprocedure Activity 2- Moves 4 extremities sustained head lift Activity 2- Moves 4 extremities sustained head lift Circulation 2- SBP +/= 20 points of pre-anesthetic level Circulation 2- SBP +/= 20 points of pre-anesthetic level Consciousness 2- Awake and alert oriented x 3 Consciousness 2- Awake and alert oriented x 3 O2 Saturation 2- Able to maintain O2 satruation of 92% on room air O2 Saturation 2- Able to maintain O2 satruation of 92% on room air Respiratory 2- Able to deep breathe and cough well Respiratory 2- Able to deep breathe and cough well Total Score 10 Total Score 10 Contrast Agent: Isovue Diagnostic Contrast: 41 ml Total Contrast: 41 ml Fluoro Dose: 16 mGy Activated Clotting Time Time Seconds to Clot 01:03 PM 193 Procedure Log Time Note Enter By 12:28 PM Pt arrived to laboratory chemical assistant 2 at 12:28 tsites 12:28 PM Nerissa Gomez RT (R) Position: Monitor Time in: 12:28 tsites 12:28 PM Meng Barriga RN Position: Hack Driver Time in: 12:28 tsites 12:28 PM Sharona Paul RT (R) Position: Scrub Time in: 12:28 tsites 12:28 PM Patient charges- Angio tray pack, Navilyst 3mm J, Pulse Oximetry and ACIST tubing and transducer tsites 12:28 PM Physician arrived 12:28 tsites 12:28 PM Meet and greet completed tsites 12: PM Sign in performed according to hospital policy. Informed consent was obtained. tsites 12:29 PM Procedure start 12:30 tsites 12: PM Time: 12:29 Oxygen on at 2 L/min per nasal cannula by Meng Barriga RN tsites 12: PM Time: 12:29 Patient comfortable and pain free: Yes tsites 12: PM Time: 12:29LOC: 5 = Fully awake and oriented or at pre-proc level tsites 12:30 PM Hair removed from procedure site in holding area using clippers. Right wrist and Right groin prepped with Chloraprep by Sharona Paul (R), then patient was draped. Skin intact. tsites 12:32 PM Vitals capture started with the following parameters, Patient=Adult, Interval=5 min, Initial Iqxlhfyf=495 mmHg, Deflation Rate=3 mmHg, Cuff placed on Right Arm 12:32 PM CathStat 12:32 PM Recorded ECG: HR=69 Condition=Condition 1 12:33 PM HR=68 bpm, DDIR=982/82 mmhg, SpO2=98.0 %, Resp=2 B/min 12:38 PM HR=70 bpm, GIGE=687/70 mmhg, SpO2=99 %, Resp=11 B/min 12:41 PM Time: 12:41 Versed 2 mg Intravenous Given by Meng Barriga RN tsites 12:41 PM Time: 12:41 Fentanyl 50 mcg Intravenous Given by Meng Barriga RN tsites 12:41 PM iv to rt wrist dc'd tsites 12:41 PM 20 rt ac inserted per Meng Barriga RN tsites 12:42 PM IV Supplies used: J loop Angio Cath. tsites 12:43 PM HR=72 bpm, WATF=142/75 mmhg, SpO2=97 %, Resp=16 B/min 12:44 PM Time: 12:29 Patient comfortable and pain free: Yes tsites 12:44 PM Time: 12:29LOC: 5 = Fully awake and oriented or at pre-proc level tsites 12:46 PM Time out was performed according to hospital policy. Conscious sedation and anesthesia was achieved (see medication log with in this report above) tsites 12:46 PM Time: 12:46 0.5 ml Lidocaine 2% to right radial Subcutaneous Given by Georgi Britt MD, [facility] tsites 12:48 PM HR=70 bpm, FCOR=205/69 mmhg, SpO2=96.0 %, Resp=12 B/min 12:50 PM Pressure channel 1 zero failed. 12:50 PM Pressure channel 1 zeroed. 12:50 PM Time: 12:50 Versed 1 mg Intravenous Given by Meng Barriga RN tsites 12:50 PM Time: 12:50 Fentanyl 25 mcg Intravenous Given by Meng Barriga RN tsites 12:50 PM Access obtained by percutaneous puncture. 5/6Fr 10cm Terumo Glidesheath sheath placed in right Radial artery. [id number] tsites 12:50 PM Time: 12:50 Patient given 2,000 units Heparin, 200 mcg Nitroglycerin, and 2.5 mg Verapamil Intraarterial by Georgi Britt MD, [facility]. This is given to reduce risk of vessel spasm and thrombosis. tsites 12:51 PM 5Fr TIG catheter inserted over the wire [facility] tsites 12:51 PM 0.035 260cm Navilyst 3mmJ wire [id number] tsites 12:52 PM Catheter crossed the aortic valve and was selectively placed in the left ventricle. Pressures recorded on pullback for left heart catheterization. tsites 12:52 PM Pressure channel 1 zeroed. 12:52 PM Recorded Pressure: LV, HR=83, Condition=Condition 1 (Left Ventricle) LV 120/17/35 12:52 PM Recorded Pressure: LV, Ao, HR=80, Condition=Condition 1 (Left Ventricle) LV 110/11/33, (Aorta) Ao 120/79/98 12:53 PM RCA angiography performed in multiple views. tsites 12:53 PM Recorded Pressure: Ao, HR=63, Condition=Condition 1 (Aorta) Ao 97/48/83 12:53 PM HR=61 bpm, YQFY=130/56 mmhg, SpO2=98 %, Resp=19 B/min 12:54 PM Lesion found in Distal RCA. Pre Stenosis: 95 Pre MICHAELA Flow: 2: Partial Flow/Perfusion (> 1 but < 3) tsites 12:54 PM wire reinserted catheter removed tsites 12:54 PM 5Fr FL 4 catheter inserted over the wire [facility] tsites 12:55 PM Coronary Dominance: right tsites 12:55 PM Lesion found in Mid RCA. Pre Stenosis: 30 in stent Pre MICHAELA Flow: tsites 12:56 PM LCA angiography performed in multiple views. tsites 12:56 PM Recorded Pressure: Ao, HR=67, Condition=Condition 1 (Aorta) Ao 93/69/81 12:57 PM Lesion found in Mid LAD. Pre Stenosis: 20 Pre MICHAELA Flow: tsites 12:58 PM Lesion found in Distal Circumflex. Pre Stenosis: 30 Pre MICHAELA Flow: tsites 12:58 PM wire reinserted catheter removed tsites 12:58 PM HR=71 bpm, IVOA=186/67 mmhg, SpO2=90.0 %, Resp=21 B/min, Comment=nsr 12:58 PM 6Fr JR 4 Runway guide catheter was used to cannulate the PCI vessel successfully. reused? No tsites 12:58 PM .014 PT Graphix 182cm guide wire across target lesion- successful. reused? No tsites 12:58 PM Inflation device was opened. tsites 01:02 PM 3.0mm x 16mm Synergy drug-eluting stent across target lesion- successful Lot #[id number] tsites 01:02 PM Stent deployed @ 12 chivo for 18 seconds tsites 01:03 PM At 13:03 the ACT was 193 seconds. tsites 01:03 PM Time: 13:03 Heparin 2000 units Intravenous Given by Meng Barriga RN tsites 01:03 PM HR=66 bpm, YQAZ=541/70 mmhg, SpO2=94.0 %, Resp=16 B/min, Comment=nsr 01:03 PM Stent delivery system removed intact. tsites 01:03 PM Guide wire removed intact. tsites 01:03 PM Guide catheter removed intact. tsites 01:04 PM Robel Russ RN Position: Monitor Time in: 13:03 tsites 01:05 PM Procedure completed at 13:04 04/08/2019 [email or web address] 01:05 PM Did you address MICHAELA flow and Dominance? YesCoronary Dominance: right [email or web address] 01:06 PM Sign out completed: Radiation Dose 130.74 mGy, 15.7 Gy/cm2 Fluoro Time: 3.1 Isovue 370 - 200ml contrast 41 ml given by Georgi Britt MD, [facility]. Complications: None. The patient was discharged out of the cath lab tech in stable condition. Sedation minutes 24. Cardiac Rehab Consult needed: Yes. Confirmed administered medications: Yes [email or web address] 01:06 PM Arterial sheath pulled, Vasc Band closure device used and was Successful S/N. [email or web address] 01:06 PM 11 ml air in Vasc Band. [email or web address] 01:06 PM Estimated Blood Loss: minimal [email or web address] 01:07 PM Post ECG NSR [email or web address] 01:07 PM Post Blood Pressure 113/70 [email or web address] 01:07 PM 13:07 Post Pulses Bilateral DP & PT 2+ jcallihan 01:07 PM 13:07 Post Pulses Bilateral radial 2+ jcallihan :07 PM Information taught Cardiac Cath, PCI, and Vasc Band jcallihan :07 PM Education needs Procedure, Plan of Care, and Responsibilities of Patient in Care jcallihan :07 PM Learning barriers :None jcallihan :07 PM Education Methods Verbal [facility] PM Education evaluation Able to repeat information [email or web address] 01:07 PM Site status No bleeding/ No Hematoma - Rt Wrist as reported by Sharona Paul RT (R) at 13:07 [email or web address] 01:07 PM Plavix, Effient or Brilinta given Yes [email or web address] 01:08 PM Time: 13:08 Plavix 300 mg Orally Given by Meng Barriga RN [facility] 01:16 PM Report given to 2A RN Pt taken to 2A Room #38. 13:15 jcallihan 01:16 PM Patient out of room: 13:16 [email or web address] 01:16 PM Family placed in consult room. [email or web address] 01:16 PM Complications: None [email or web address] Complications Complication None None None Hemodynamics Pressures Site Systolic/A Wave Diastolic/V Wave Mean LV 120 17 35 LV 110 11 33 AO 120 79 98 AO 97 48 83 AO 93 69 81 Post Procedure Information Blood Pressure: 113/70 mmHg Rhythm: NSR Post procedural instructions were given Closure Device Time Device Success/Fail 04/08/2019 1:05:00 PM Mechanical Compression Successful Site Checks Time Location Status Staff Sheath In? Note 01:07 PM Rt Wrist No bleeding/ No Hematoma Sharona Paul RT (R) Pulses Time Site Pre-Procedure Post-Procedure Note Bilateral radial 2+ 1:07:00 PM Bilateral DP & PT 2+ 1:07:00 PM Bilateral radial 2+ Updated by Nerissa Gomez RT (R) on 04/08/2019 1:19:25 PM Nerissa Sites, RT electronically signed on 04/08/2019 1:20:39 PM with status of Final
[2019-04-08] MEDS ORDERED: *HR* Ticagrelor 90 MG TABLET PO SCH (21:00)
[2019-04-09 06:50] LABS: Basophils # 0.1 K/mcL (0.0-0.2); Basophils % 0.5 %; Eosinophils # 0.1 K/mcL (0.0-0.6); Eosinophils % 0.6 %; Hematocrit 46.6 % (35.3-44.9); Hemoglobin 16.3 g/dL (11.5-15.4); Immature Granulocytes % 0.2 % (0-4); Lymphocytes # 2.4 K/mcL (0.6-4.6); Lymphocytes % 23.2 %; Mean Corpuscular Hemoglobin 32.2 pg (28.0-33.3); Mean Corpuscular Volume 92.1 fL (83.0-100.0); Mean Platelet Volume 9.4 fL (9.4-12.4); Monocytes # 0.6 K/mcL (0.0-1.3); Monocytes % 5.9 %; Neutrophils # 7.1 K/mcL (1.6-8.9); Platelet Count 253 K/mcL (140-400); Red Blood Count 5.06 M/mcL (3.82-4.97); Red Cell Distribution Width 12.7 % (11.5-14.5); Segmented Neutrophils % 69.6 %; White Blood Count 10.1 K/mcL (4.3-11.1)
[2019-04-09 07:14] LABS: Chol/HDL Ratio 7.2 (0-4.9)
[2019-04-09 07:15] LABS: BUN/Creatinine Ratio 18 (6-26); Blood Urea Nitrogen 12 mg/dL (6-20); Calcium 9.1 mg/dL (8.6-10.3); Carbon Dioxide 22 mEq/L (23-29); Chloride 104 mEq/L (98-107); Glucose 244 mg/dL (70-105); Osmolality,Calculated 288 (280-300); Potassium 4.5 mEq/L (3.5-5.1); Sodium 135 mEq/L (136-145); eGFR For African Americans > 60 (> 60); eGFR For Non-African Americans > 60 (> 60)
[2019-04-09] MEDS ORDERED: Perflutren Lipid Microsphere 1.3 ML in 0.9 % Sodium Chloride 8.7 ML IVP ONE (07:31)
[2019-04-09 08:19] LABS: Estimated Average Glucose 258 mg/dl
[2019-04-09] MEDS: Insulin DETEMIR 100 UNIT/ML X5UNITS SQ SCH (08:39)
[2019-04-09] MEDS: Insulin LISPRO 300 UNITS/3 ML VIAL SQ SCH ×2 (08:40→12:03)
[2019-04-09] MEDS ORDERED: Aspirin Enteric Coated 81 MG Tablet PO SCH (09:00)
--- NOTE | 2019-04-09 09:19 | Discharge Summary ---
- NOTES TO OUTPATIENT PROVIDER Notes to Outpatient Provider: Follow with cardiology as outpatient Date of Encounter: 04/09/19 Time of Encounter: 07:15 - Discharge Diagnosis (1) NSTEMI (non-ST elevated myocardial infarction) Priority: Primary Status: Acute (2) Diabetes mellitus type 2 in obese Priority: Secondary Status: Chronic (3) Obesity (BMI 30.0-34.9) Priority: Secondary Status: Chronic (4) Smoker Priority: Secondary Status: Chronic (5) Insurance coverage problems Priority: Secondary Status: Acute Hospital course: Ms. Hernandez is a 48 year old female with history of CAD status post mRCA stent in 2018, DM, smoker, who was admitted for NSTEMI. Troponin peaked at 0.[address] elevations on EKG. Underwent left heart catheterization on 04/08 with PCI 1 to dRCA. Of note, she states inability to afford Brillinta for the last 2 weeks hence it was switched to plavix 75mg QD and lipitor was increased to 80mg HS. She will be discharged with outpatient cardiology follow-up. Discharge discussed with: patient, nurse - Time Spent with Patient Total time spent providing and/or coordinating discharge services: 31 mins - Discharge Medications Prescriptions: New Clopidogrel [Plavix] 75 mg PO DAILY #30 tablet Continued Aspirin 81 mg PO DAILY #30 tab.chew Metoprolol [Lopressor] 25 mg PO BID #60 tablet Changed Atorvastatin [Lipitor] 80 mg PO HS #60 tablet Discontinued Ticagrelor [Brilinta] 90 mg PO BID #60 tablet Home Medications: Aspirin 81 mg PO DAILY #30 tab.chew 10/12/17 [Rx] Atorvastatin [Lipitor] 80 mg PO HS #60 tablet 04/09/19 [Rx] Clopidogrel [Plavix] 75 mg PO DAILY #30 tablet 04/09/19 [Rx] Metoprolol [Lopressor] 25 mg PO BID #60 tablet 04/09/19 [Rx] Allergies/Adverse Reactions: Allergy/AdvReac Type Severity Reaction Status Date / Time No Known Allergies Allergy Verified 04/07/19 23:53 Date of admission: 04/08/19 05:11 Primary care physician: PCP NONE Consults: 04/08/19 05:30 Consult to Cardiology [CONS] Routine Comment: Consulting Provider: Cardiology Karen Reason for Consult: NSTEMI Call Completed: No 04/08/19 09:18 Consult to Cardiac Rehabilitation-Phase1 [CONS] Routine Comment: Reason for Consult: NSTEMI Call Completed: No - Constitutional Vitals: Temp Pulse Resp BP Pulse Ox 98.4 F 74 18 122/84 97 04/09/19 07:40 04/09/19 07:40 04/09/19 07:40 04/09/19 07:40 04/09/19 07:40 Exam: General: Not in distress Cardiovascular: RRR. No murmurs. No chest wall tenderness. Lungs: Clear to auscultation bilaterally. Abdomen: Non-tender. No rebound or gaurding. Nl bowel sounds. Skin: No rashes. Warm and dry Neuro: No focal deficits - Patient Status Disposition: Home, Self-Care Condition: Fair Functional capacity at discharge: independent ambulation Overall status at discharge: patient is progressing back to baseline - Discharge Instructions Instructions: Diabetes Mellitus Type 2 in Adults (DC) Follow Up With: NONE,PCP [Primary Care Provider] - Georgi Britt MD [Partnered Physician] - - Diet and Activity Activity: as per the cardiac rehab Diet: diabetic diet
--- NOTE | 2019-04-09 09:39 | Cardiology Progress Note ---
Date of Encounter: 04/09/19 Time of Encounter: 08:30 Assessment and Plan (1) NSTEMI (non-ST elevated myocardial infarction) Current Visit: Yes Status: Acute Patient presented with typical chest pain symptoms concerning for ACS Troponin 0.1, 0.75. Initial ECG did show mild inferior ST elevations, reviewed by Dr. Britt and did not meet STEMI criteria. Given Brilinta 180 mg and ASA 324 mg in ED. Patient is chest pain free upon exam. [facility] 04/08: is severe 1v CAD, successful PTCA/Drug-Eluting Stent placement in the distal RCA. Right radial access site bandage removed, site is clean dry and intact. Continue ASA, Plavix statin, and BB. Will require DAPT (ASA & Plavix) uninterrupted x1 yr. Cardiac rehab ordered. Discussed smoking cessation at length with patient. Will arrange follow-up within the next week with our office. Cardiology will sign-off at this time, please re-consult as needed. (2) CAD (coronary artery disease) Current Visit: Yes Status: Acute Echo 04/09: LVEF 55%, no significant valvular dysfunction. Plan as above. Continue Asa, Plavix, statin, BB. Qualifiers: Coronary Disease-Associated Artery/Lesion type: [place] artery [place] vs. transplanted heart: [place] heart Associated angina: with unspecified angina Qualified Code(s): I25.119 - Atherosclerotic heart disease of [place] coronary artery with unspecified angina pectoris Discussion w patient/family: The assessment and plan as outlined above was discussed with the patient and/or family members who expressed understanding and agreement. All questions were answered. Thank you for involving us in the care of your patient. Please call with any questions. Subjective Principal diagnosis: NSTEMI Interval history: No complaints this morning, denies CP. States she is ready to go home. Objective Vital Signs, Last 4 Hours Temp Pulse Resp BP Pulse Ox 04/09/19 07:40 98.4 F 74 18 122/84 97 General: Conversant, No Apparent Distress HEENT: Atraumatic, Normocephaly, Mucus Membranes Moist Neck: No JVD, Normal carotid pulses Cardiac: Reg Rate and Rhythm, Normal S1 and S2, No Murmur Lungs: Normal Breath Sounds, No Wheeze, Rales, Rhonchi Neuro: Alert and responsive, No focal deficits noted Abdomen: Soft, Non-Tender Skin: Other (right radial cath site clean, dry and intact-- bandage removed. ) Musculoskeletal: No Chest Wall Tenderness Extremities: No Clubbing, No Cyanosis, No Edema, Normal Pulses Results 04/09/19 05:58 04/09/19 05:58 Lab Results 04/08/19 04/09/19 04/09/19 14:30 05:58 05:58 WBC 10.1 Hgb 16.3 H Hct 46.6 H Plt Count 253 Sodium 135 L Potassium 4.5 Chloride 104 Carbon Dioxide 22 L BUN 12 Creatinine 0.65 Glucose 244 H Calcium 9.1 Troponin I 0.72 H* - Imaging and Cardiology Cardiac cath: report reviewed Consult Discharge Plan - Plan Instructions: Diabetes Mellitus Type 2 in Adults (DC) Referrals: Georgi Britt MD [Partnered Physician] - (Cardio will call patient for an appt.) NONE,PCP [Primary Care Provider] - Anna Pelayo MD [Partnered Physician] - (Web Requested 04/09/2019) Prescriptions: Atorvastatin [Lipitor] 80 mg PO HS #60 tablet Prescription Printed Metoprolol [Lopressor] 25 mg PO BID #60 tablet Prescription Printed Clopidogrel [Plavix] 75 mg PO DAILY #30 tablet Prescription Printed
[2019-04-09 11:42] VITALS: BP 109/71
[2019-04-09] MEDS ORDERED: Insulin LISPRO 300 UNITS/3 ML VIAL SQ SCH (21:00)
--- NOTE | 2019-04-10 12:35 | Electrocardiograph Report ---
[address] [place], [place] [address] Test Date: 2019-04-07 Pat Name: Kaleb Hernandez Department: 104 Room: 2A Gender: F Barrel Filler: : 1970 Requested By: Ciro Blackwell Order Number: [id number] Reading MD: Georgi Britt Measurements Intervals [place] Rate: 91 P: 80 IA: 189 QRS: 88 QRSD: 98 T: 67 QT: 357 QTc: 405 Interpretive Statements SINUS RHYTHM LEFT ATRIAL ENLARGEMENT Poor R wave progression BASELINE ARTIFACT Electronically Signed On 04-10-2019 12:33:53 EDT by Georgi Britt
--- NOTE | 2019-04-10 12:36 | Electrocardiograph Report ---
[address] [place], [place] [address] Test Date: 2019-04-08 Pat Name: Kaleb Hernandez Department: [id number] Room: 2A38 Gender: F Hybrid Tester: : 1970 Requested By: Jhony Boss Order Number: [id number] Reading MD: Georgi Britt Measurements Intervals [place] Rate: 74 P: 71 [place]: 161 QRS: 92 QRSD: 105 T: 65 QT: 377 QTc: 419 Interpretive Statements Sinus rhythm Borderline right axis deviation INFERIOR PA, AGE UNDETERMINED Electronically Signed On 04-10-2019 12:34:55 EDT by Georgi Britt
--- NOTE | 2019-04-12 17:20 | Electrocardiograph Report ---
[place] [employer] [facility] Test Date: 2019-04-08 Pat Name: Kaleb Hernandez Department: [id number] Room: 38 Gender: F Veterinary Nurse: : 1970 Requested By: Chidi Mark Order Number: [id number] Reading MD: Harshad Benedict Measurements Intervals [place] Rate: 74 P: 67 VA: 154 QRS: 98 QRSD: 98 T: 55 QT: 373 QTc: 414 Interpretive Statements Sinus rhythm Electronically Signed On 04-12-2019 17:18:54 EDT by Harshad Benedict
== END 2019-04-09 12:27 | disposition home or self-care (01) | DRG 246 ==
LOC: EMEROOARM 23:41 → 2ANU 23:41 → SUATTDRO 04-08 05:11
PROVIDERS: ADMIT Internal Medicine; ATTEND Internal Medicine